=== PATIENT | male | born 1940 | race Caucasian/White ===

== ENCOUNTER 2016-10-20 20:24 | Inpatient (IN) | payer MEDICARE, OTHER ==
[~2016-10-20] VITALS: Ht 170.2 cm; Wt 85.4 kg
[2016-10-20 20:33] VITALS: BP 147/75
[2016-10-20 21:03] VITALS: BP 148/75
[2016-10-20] MEDS ORDERED: LOSARTIN PO (21:18)
[2016-10-20 21:32] LABS: BASO % 0.3 % (0.0-1.0); EOS # 0.1 10*3/uL (0.0-0.4); EOS % 2.9 % (1.0-4.0); HEMATOCRIT 25.1 % (42.0-52.0); HEMOGLOBIN 8.7 g/dl (14.0-18.0); LYMPH # 0.9 10*3/uL (1.3-4.4); LYMPH % 23.4 % (27.0-41.0); MEAN CELL VOLUME 103.7 fl (80.0-94.0); MEAN CORPUSCULAR HGB CONC 34.7 g/dl (33.0-37.0); MEAN PLATELET VOLUME 10.9 fl (9.6-12.3); MONO # 0.4 10*3/uL (0.1-1.0); MONO % 9.5 % (3.0-9.0); NEUT # 2.4 10*3/uL (2.3-7.9); NEUT % 63.4 % (47.0-73.0); PLATELET COUNT AUTOMATED 60 10*3/uL (130-400); RED BLOOD COUNT 2.42 10*6/uL (4.50-5.90); RED CELL DISTRI WIDTH 13.7 % (0-14.5); WHITE BLOOD COUNT 3.8 10*3/uL (4.8-10.8)
[2016-10-20 21:53] LABS: BUN 12 mg/dl (7-24); CARBON DIOXIDE 27 mmol/L (21-32); CHLORIDE 97 mmol/L (98-107); EST GLOM FILT AFRICAN AMERICAN > 60 ml/min; GLUCOSE 107 mg/dL (65-99); SODIUM 134 mmol/L (136-145)
[2016-10-20 22:04] LABS: TROPONIN I < 0.015 ng/ml (<0.045)
[2016-10-20 22:06] VITALS: BP 152/84
[2016-10-20 23:05] VITALS: BP 148/72
[2016-10-20 23:27] VITALS: BP 120/77
[2016-10-20 23:42] VITALS: BP 159/74
[2016-10-21 04:00] VITALS: BP 154/76
[2016-10-21 04:24] LABS: BASO % 0.3 % (0.0-1.0); EOS % 0.7 % (1.0-4.0); HEMATOCRIT 23.7 % (42.0-52.0); HEMOGLOBIN 8.2 g/dl (14.0-18.0); LYMPH # 0.6 10*3/uL (1.3-4.4); LYMPH % 20.7 % (27.0-41.0); MEAN CELL VOLUME 103.5 fl (80.0-94.0); MEAN CORPUSCULAR HGB 35.8 pg (27.0-31.0); MEAN CORPUSCULAR HGB CONC 34.6 g/dl (33.0-37.0); MEAN PLATELET VOLUME 11.3 fl (9.6-12.3); MONO # 0.2 10*3/uL (0.1-1.0); MONO % 6.9 % (3.0-9.0); NEUT # 2.2 10*3/uL (2.3-7.9); NEUT % 71.1 % (47.0-73.0); PLATELET COUNT AUTOMATED 53 10*3/uL (130-400); RED BLOOD COUNT 2.29 10*6/uL (4.50-5.90); RED CELL DISTRI WIDTH 13.5 % (0-14.5); WHITE BLOOD COUNT 3.1 10*3/uL (4.8-10.8)
[2016-10-21 04:37] LABS: INTERNATIONAL NORM RATIO 1.4 (2.0-3.5); PROTHROMBIN TIME 15.4 SECONDS (9.0-12.4)
[2016-10-21 04:42] LABS: ALBUMIN 2.4 gm/dl (3.1-4.5); BILIRUBIN, TOTAL 2.9 mg/dl (0.2-1.0); BUN 11 mg/dl (7-24); CARBON DIOXIDE 26 mmol/L (21-32); CHLORIDE 99 mmol/L (98-107); CHOLESTEROL 106 mg/dL (<200); EST GLOM FILT AFRICAN AMERICAN > 60 ml/min; GLUCOSE 117 mg/dL (65-99); MAGNESIUM 1.3 mg/dL (1.5-2.1); SGOT/AST 76 IU/L (3-35); SGPT/ALT 32 U/L (12-78); SODIUM 135 mmol/L (136-145); TOTAL PROTEIN 5.7 gm/dL (6.4-8.2); TRIGLYCERIDES 82 mg/dl (<150); VLDL CHOLESTEROL 16 mg/dL (6-40)
[2016-10-21 04:43] LABS: ALKALINE PHOSPHATASE 147 U/L (45-117); HDL CHOLESTEROL 36 mg/dl (40-60); LDL CHOLESTEROL 54 mg/dL (9-159)
[2016-10-21 04:48] LABS: FREE T4 1.22 ng/dl (0.76-1.46)
[2016-10-21 04:49] LABS: HEMOGLOBIN A1c 4.7 % (4.8-5.6)
[2016-10-21 08:00] VITALS: BP 148/72
[2016-10-21 08:30] LABS: FOLIC ACID 5.93 ng/mL (>5.38)
[2016-10-21 12:00] VITALS: BP 152/54
[2016-10-21 16:00] VITALS: BP 152/54
[2016-10-21] MEDS ORDERED: LOSARTAN POTASS1 TA5 PO (18:25)
[2016-10-21 20:00] VITALS: BP 147/63
[2016-10-22] VITALS: BP 123/53
[2016-10-22 07:17] LABS: BASO % 0.6 % (0.0-1.0); EOS # 0.1 10*3/uL (0.0-0.4); EOS % 4.2 % (1.0-4.0); HEMATOCRIT 23.2 % (42.0-52.0); HEMOGLOBIN 7.9 g/dl (14.0-18.0); LYMPH # 1.2 10*3/uL (1.3-4.4); MEAN CELL VOLUME 103.1 fl (80.0-94.0); MEAN CORPUSCULAR HGB 35.1 pg (27.0-31.0); MEAN CORPUSCULAR HGB CONC 34.1 g/dl (33.0-37.0); MEAN PLATELET VOLUME 11.7 fl (9.6-12.3); MONO # 0.3 10*3/uL (0.1-1.0); NEUT # 1.6 10*3/uL (2.3-7.9); NEUT % 48.9 % (47.0-73.0); PLATELET COUNT AUTOMATED 57 10*3/uL (130-400); RED BLOOD COUNT 2.25 10*6/uL (4.50-5.90); RED CELL DISTRI WIDTH 13.9 % (0-14.5); WHITE BLOOD COUNT 3.4 10*3/uL (4.8-10.8)
[2016-10-22 07:47] LABS: BUN 11 mg/dl (7-24); CARBON DIOXIDE 28 mmol/L (21-32); CHLORIDE 101 mmol/L (98-107); EST GLOM FILT AFRICAN AMERICAN > 60 ml/min; GLUCOSE 95 mg/dL (65-99); MAGNESIUM 1.3 mg/dL (1.5-2.1); POTASSIUM 3.8 mmol/L (3.5-5.1); SODIUM 135 mmol/L (136-145)
[2016-10-22 07:59] VITALS: BP 137/65
[2016-10-22 12:00] VITALS: BP 126/68
== END 2016-10-22 13:11 | disposition home or self-care (01) | DRG 640 ==
LOC: ED 20:24 → 4E 22:45 → EDHOLD 22:45 → 4E 23:00
PROVIDERS: Emergency Medicine Emergency Medical Services; Internal Medicine; Internal Medicine Hospice and Palliative Medicine
DX: E86.0 Dehydration (principal); E43 Unspecified severe protein-calorie malnutrition; D61.818 Other pancytopenia; D64.9 Anemia, unspecified; E87.1 Hypo-osmolality and hyponatremia; D72.810 Lymphocytopenia; R73.9 Hyperglycemia, unspecified; I10 Essential (primary) hypertension; E83.42 Hypomagnesemia; E78.5 Hyperlipidemia, unspecified; N40.0 Benign prostatic hyperplasia without lower urinary tract symptoms; Z85.118 Personal history of other malignant neoplasm of bronchus and lung; Z90.49 Acquired absence of other specified parts of digestive tract; Z82.49 Family history of ischemic heart disease and other diseases of the circulatory system; Z87.891 Personal history of nicotine dependence; Z68.28 Body mass index [BMI] 28.0-28.9, adult

== ENCOUNTER 2018-01-01 06:11 | Inpatient (IN) | payer MEDICARE, OTHER ==
[~2018-01-01] VITALS: Ht 170.2 cm; Wt 91.9 kg
--- NOTE | ~2018-01-01 | PR ---
[place], [place] PROGRESS NOTE NAME: RIYA SORIA UNIT #: [id number] ROOM: 524 DOCTOR: SUE HESS,SITA BIRTHDATE: [birth year] DOS: 01/12/2018 This is an attestation to the progress note date of service 01/12/2018. I have seen the patient and examined and agreed with the assessment and plan of the resident and made the necessary changes. Cherise Rogers MD CM:PNTRANS [id number] SITA ROGERS MD 03/02/18 1030 interface
--- NOTE | ~2018-01-01 | PR ---
[place], [place] PROGRESS NOTE NAME: RIYA SORIA UNIT #: [id number] ROOM: 524 DOCTOR: MARLENE PINK MDLISA BIRTHDATE: [birth year] DOS: 01/07/2018 SUBJECTIVE: The patient has been noted comfortable, resting and sitting on the chair. Eating his breakfast. Denies symptoms of chest pain or hemoptysis. Denies symptoms of nausea or vomiting. Denies symptoms of acute shortness of breath. The patient remains afebrile. Denies symptoms of nausea, vomiting, diarrhea, abdominal pain, hematemesis, or melena. He was still noted some tachycardia intermittently. Remaining review of systems, limited were noted negative. OBJECTIVE: VITAL SIGNS: Normal temperature, respiratory rate 22, heart rate 116, blood pressure 114/90. Pulse oxygen saturation on room air is 93%, saturation recorded at rest. HEENT: Head was atraumatic. Eyes nonicterus. NECK: Supple. CARDIOVASCULAR: S1, S2 audible. LUNGS: Noted without any wheezing or crackles at the present time. ABDOMEN: Soft, nontender. EXTREMITIES: Without any acute edema. MUSCULOSKELETAL: No deformities. SKIN: Visible skin lesions or rashes. CENTRAL NERVOUS SYSTEM: Generalized weakness. No focal deficit. LABORATORY DATA: Essentially noted positive on the BAL and bronchial washing, which was done on 01/05/2018. IMPRESSION: The patient with cavitary nodule noted several ____ and solid nodule, at this time, etiology is unclear, may be related to atypical tuberculosis. Usually atypical tuberculosis is seen with current radiologic presentation. The HIV testing was also done, which is noted nonreactive. The fungal antibody was pending. The TB Gold test was also sent on with pending results. The reference lab has been contacted. The results might be available tomorrow. In the meantime, the patient was placed in negative pressure isolation. Continue in the meantime with other therapy, plan of management as in progress. Usual care. The patient might need to be transferred to [facility] for further medical management. He has been known very well by the physicians over there. The patient has not been seen in this hospital previously. Medical records have been requested for Dr. Gomez' office, his top taper machine/oncologist, which still remains pending and not available as yet, which has been ordered for the last 5 days. [place], [place] PROGRESS NOTE NAME: RIYA SORIA UNIT #: [id number] ROOM: 524 DOCTOR: LISA RIVERA MD BIRTHDATE: [birth year] LISA ROSARIO MD CM:TAE [phone] LISA PINK MD 01/08/18 0157 interface
--- NOTE | ~2018-01-01 | PR ---
[place], [place] PROGRESS NOTE [id number] UNIT #: [id number] ROOM: 524 DOCTOR: LISA RIVERA MD BIRTHDATE: [birth year] DOS: 01/03/2018 SUBJECTIVE: The patient was seen and examined on 01/03/2018. He has not been noted any ongoing acute new respiratory complaints. Denies dizziness, headache, diplopia, syncopal episode. Denies any symptoms of nausea, vomiting, diarrhea, abdominal pain, hematemesis, melena, or hematochezia. The patient denies any symptoms of abdominal pain at this time. Remaining systems were reviewed, they were noted all negative. OBJECTIVE: VITAL SIGNS: For the patient, which have been recorded showed normal temperature, respiration 16, heart rate 99, blood pressure 120/70. Pulse oxygen saturation is 96% saturation on 2 liters nasal cannula. HEENT: Examination shows head was atraumatic. Eyes: No icterus. NECK: Supple. CARDIOVASCULAR: S1, S2 is audible. LUNGS: The patient was noted without any wheezing or crackles at this time. Breaths are noted mildly diminished bilaterally. ABDOMEN: Soft, nontender. Bowel sounds present. EXTREMITIES: Without any acute edema. MUSCULOSKELETAL: Noted some loss of muscle mass. There were no deformities. CENTRAL NERVOUS SYSTEM: Cranial nerves 2-12 intact. No focal deficit. LABORATORY DATA: CBC today, WBC count 2.8, hemoglobin 7.5, 22.5, platelet count of 41,000. CMP on 01/03/2018 was noted BUN 33, creatinine 2.26. Glucose 103. Potassium was 3.4. Total protein 5.3, albumin 2.3. Blood culture showed no bacterial growth. The ESR was noted as well, which was normal. CRP minimally elevated at 0.42. IMPRESSION: 1. Bilateral pulmonary nodule, which has been noted. The patient with the cavitation suggestive of possibility of chronic infection to be considered versus metastatic malignancy for primary lung cancer with multiple pulmonary nodules, vasculitis and other less likely to be a typical Mycobacterium tuberculosis; however, atypical mycobacterial infection cannot be excluded. 2. Labs described to me by the patient's spouse and the family members. The patient has been treated by Dr. Singh, [facility] with Aranesp shot for the symptomatic anemia. With the current pancytopenia noted on the today's lab was suggestive of possibility of myelodysplastic syndrome would be very likely. That does increase the risk of getting any resistant infection and pulmonary infection including fungal infections. 3. History of recurrent falls, multifactorial noted with some pain problem rather than the back. Other factors. However, any [employer] pathology to be excluded, probably with MRI. The patient has been noted acute injury at this time with resolving, but the kidney function not noted well enough to have the MRI done with contrast at this time. In the meantime, continue current plan of management. The patient was started on negative pressure isolation, which has been discontinued that is not needed. The patient was suggested fibrobronchoscopy that was planned to be done on Friday morning for assessment [place], [place] PROGRESS NOTE NAME: IRYA SORIA UNIT #: [id number] ROOM: 524 DOCTOR: LISA RIVERA MD BIRTHDATE: [birth year] of the infection and other reasons. In the meantime, continuation of the other supportive therapy, plan of management obtain hematology consultation at the present time and also try to get the medical record of the patient, Dr. Singh from [place], [place]. The patient further assessment of hematologic problems. The patient has been known with history of lung cancer in the left side. The patient underwent lobectomy 21 years ago or so as the patient surgery was done in [facility] as well, has not been known with any further malignant issues as per family members. 4. Physical appearance of protein-calorie malnutrition as well. The risk and benefits of bronchoscopy were discussed with the patient and the family members in detail. The past family and social history reviewed again and was not unchanged unless it was dated in today's history of present illness. The assessment and management has been discussed in detail for the patient with Dr. James Alonso as well. LISA ROSARIO MD CM:PNTRANS [id number] LISA PINK MD 01/03/18 3211 interface
--- NOTE | ~2018-01-01 | PR ---
[place], [place] PROGRESS NOTE NAME: RIYA SORIA UNIT #: [id number] ROOM: 524 DOCTOR: MARLENE PINK MD,LISA BIRTHDATE: [birth year] DOS: 01/04/2018 PULMONARY PROGRESS NOTE SUBJECTIVE: The patient noted comfortable at this time, resting in the bed, without any pain. Denies any symptoms of chest pain. Cough has been noted mild without any sputum expectoration. OBJECTIVE: VITAL SIGNS: Normal temperature, respiratory rate 20, heart rate 82, blood pressure 130/76. Pulse ox saturation on 2 liters nasal cannula 97% saturation. HEENT: Examination shows head was atraumatic. Eyes nonicterus. NECK: Supple. CARDIOVASCULAR: S1, S2 audible. LUNGS: Egzr-at-bjyrtfni decreased breath sounds bilaterally. There were no crackles or wheezing today. ABDOMEN: Soft, nontender. EXTREMITIES: Without acute edema. LABORATORY DATA: CBC today: WBC count 2.9, hemoglobin 7.4, hematocrit 22.1, platelet count 39,000. BMP: BUN 27, creatinine 1.90. IMPRESSION: The patient had been currently noted with: 1. Pancytopenia. 2. Bilateral pulmonary nodules, cavitary nodule noted in the lungs. Various differential has been considered. PLAN OF MANAGEMENT: No changes in the plan of management. Bronchoscopy is planned to be done tomorrow morning. Hematology consultation was ordered. Bronchial washing and BAL specimen will be obtained, ____ biopsy will be done. The patient has been noted with thrombocytopenia as well. All other supportive therapy, plan of management, care plan. LISA ROSARIO MD CM:PNTRANS [phone] LISA PINK MD 01/04/18 1544 interface
--- NOTE | ~2018-01-01 | PR ---
[place], [place] PROGRESS NOTE NAME: RIYA SORIA UNIT #: [id number] ROOM: 524 DOCTOR: COLTEN YOUNGER MD BIRTHDATE: [birth year] DOS: 01/05/2018 SUBJECTIVE: The patient is stable. PHYSICAL EXAMINATION: GENERAL: A pleasant gentleman, in no apparent distress. VITAL SIGNS: Stable and afebrile. HEENT: Normocephalic, atraumatic NECK AND THYROID: Supple. No JVD, thyromegaly, or lymphadenopathy. HEART: Normal S1, S2. Regular rate and rhythm. LUNGS: Clear to auscultation and percussion. ABDOMEN: Soft. Nontender, nondistended. Bowel sounds present. EXTREMITIES: Normal ROM. No clubbing. No edema. LABORATORY DATA: White count of 3.1, hemoglobin 7.5, hematocrit 22.3, MCV 111.5, platelet count 39,000. ASSESSMENT: 1. 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 2. Liver cirrhosis. 3. Bilateral pulmonary nodule. PLAN: We will wait for the path reports to come back. The patient has no bleeding or bruising at this time. If the counts drop, then further intervention. His hemoglobin is 7.5. If it drops further, may need transfusion, discussed. COLTEN YOUNGER MD CM:PNTRANS 1345 1 COLTEN YOUNGER MD 01/06/18210 interface
--- NOTE | ~2018-01-01 | PR ---
[place], [place] PROGRESS NOTE NAME: RIYA SORIA UNIT #: [id number] ROOM: 524 DOCTOR: COLTEN YOUNGER MD BIRTHDATE: [birth year] DOS: 01/07/2018 SUBJECTIVE: The patient is resting comfortable, sitting in the chair. PHYSICAL EXAMINATION: GENERAL: A pleasant gentleman, in no apparent distress. VITAL SIGNS: Blood pressure 140/90, heart rate 116, respiration 22. HEENT: Normocephalic, atraumatic. NECK AND THYROID: Supple. No JVD, thyromegaly, or lymphadenopathy. HEART: Normal S1, S2. Regular rate and rhythm. LUNGS: Clear to auscultation and percussion. ABDOMEN: Soft. Nontender, nondistended. Bowel sounds present. EXTREMITIES: Normal ROM. No clubbing. No edema. LABORATORY DATA: White count of 5.7, hemoglobin 9.8, hematocrit 28.9, MCV 102.5, platelet count of 35. ASSESSMENT: 1. Thrombocytopenia and anemia, probably secondary to liver and spleen etiology. 2. Macrocytosis. 2. Possibility of tuberculosis. PLAN: Counts are stable. The patient not bleeding or bruising at this time. If the platelets drop further, then intervention. In the meantime, we will keep a close watch discussed. COLTEN YOUNGER MD CM:PNTRANS [id number] COLTEN YOUNGER MD 01/09/18 0023 interface
--- NOTE | ~2018-01-01 | PR ---
[place], [place] PROGRESS NOTE NAME: RIYA SORIA UNIT #: [id number] ROOM: 524 DOCTOR: NORIS PINK MD BIRTHDATE: [birth year] DOS: 01/06/2018 CARDIOLOGY PROGRESS NOTE SUBJECTIVE: The patient was seen today 01/06/2018 at his bedside with his in attendance. He denies any problems with the WEN that he had yesterday. He did have a fever overnight, but denies any trouble swallowing or chest discomfort. He does not have a cough. He also is being seen by Infectious Diseases PHYSICAL EXAMINATION: VITAL SIGNS: Today, his pulse is 80 and regular, blood pressure is 118/68. He is afebrile, but his temperature overnight was up to 102.0. HEENT: Normocephalic and atraumatic. Extraocular muscles are intact. NECK: Supple. He has no jugular distention. Carotids are full. LUNGS: Respirations are unlabored. Chest has decreased breath sounds at the bases, but no wheezes or rales. HEART: Has a regular rhythm with an S4 gallop. I did not hear any murmurs. ABDOMEN: Soft. EXTREMITIES: Showed 1+ edema bilaterally. His transesophageal echocardiogram yesterday showed normal left ventricular systolic function with no evidence for endocarditis. At this point, he does not appear to have a cardiac cause for his symptoms. We will sign off but we will remain available to see him should his status change. I thank the hospitalist physicians for asking our advice regarding his care. NORIS PINK MD CM:PNTRANS [id number] NORIS PINK MD 01/07/18 1904 interface
--- NOTE | ~2018-01-01 | PR ---
[place], [place] PROGRESS NOTE NAME: RIYA SORIA UNIT #: [id number] ROOM: 524 DOCTOR: LISA RIVERA MD BIRTHDATE: [birth year] DOS: 01/08/2018 SUBJECTIVE: The patient was seen and examined on 01/08/2018, remains in negative pressure isolation yesterday. The TB Gold test for patient still remains pending. The patient has not been noted any fever or chills. He does not have symptoms of coughing or chest pain. Appetite was noted fair. OBJECTIVE: VITAL SIGNS: Normal temperature, respiratory rate 20, heart rate of 109, blood pressure 123/60. The pulse oxygen saturation on room air was 96% saturation. HEENT: Head was atraumatic. Eyes nonicterus. NECK: Supple. CARDIOVASCULAR: S1, S2 is audible. LUNGS: The patient noted without any wheezing or crackles. ABDOMEN: Soft, nontender. EXTREMITIES: No acute edema. LABORATORY DATA: CBC, WBC count 4.3, hemoglobin 9.2, platelet count 34,000. The BMP is BUN 30, creatinine 1.42. IMPRESSION: 1. The patient with cavitary, noncavitary nodule noted in the lungs. The patient with positive acid fast bacillus on the bronchial washing smear outpatient with pending further results. 2. Pending acid fast bacillus DNA. 3. The patient with pancytopenia with history of liver cirrhosis as well, rule out myelodysplastic syndrome. PLAN OF MANAGEMENT: No changes in the plan of care for patient at this time. Keep the patient negative pressure isolation for the TB precautions. Monitor results of the TB Gold to determine what kind of treatment would be needed for this patient, rather the patient has a typical mycobacterium infection or atypical mycobacterial infection, the patient has a nontuberculous bacterial infection. [place], [place] PROGRESS NOTE NAME: RIYA SORIA UNIT #: [id number] ROOM: 524 DOCTOR: LISA RIVERA MD BIRTHDATE: [birth year] LISA ROSARIO MD CM:PNTRANS [id number] LISA PINK MD 01/08/18 1537 interface
--- NOTE | ~2018-01-01 | PR ---
[place], [place] PROGRESS NOTE NAME: RIYA SORIA UNIT #: [id number] ROOM: 524 DOCTOR: LISA RIVERA MD BIRTHDATE: [birth year] DOS: 01/13/2018 PULMONARY PROGRESS NOTE SUBJECTIVE: The patient is noted comfortable at this time without any acute distress, resting without any coughing, sputum expectoration or any chest pain. OBJECTIVE: VITAL SIGNS: Normal temperature, respiratory rate 20, heart rate 68, blood pressure 134/65. The pulse ox saturation noted on room air as 95% saturation. HEENT: Shows head was atraumatic, eyes nonicterus. NECK: Supple. CARDIOVASCULAR: S1, S2 audible. LUNGS: The patient was noted without any wheezing or crackles. ABDOMEN: Soft, nontender. Bowel sounds present. EXTREMITIES: Noted without any acute edema. IMPRESSION: 1. The patient with cavitary and non-cavitary nodules with positive acid fast bacillus with pending identification and sensitivity. TB QuantiFERON test was noted negative. 2. Overall debility still remains persistent. 3. History of lung cancer, previously with right upper lobectomy and pulmonary nodule noted in 2017 as well. 4. Prostate cancer, only treated with Lupron. PLAN OF MANAGEMENT: No change in plan of management. Discharge planning is not in progress. The culture results for the patient and the PCR of the current acid fast remains pending. Possibility of malignancy with current pulmonary nodule still should be considered and exclude the patient appropriately with outpatient assessment upon stability of the patient. Medication for the acid fast bacillus management at this time remains pending because of the lack of the final identification results. [place], [place] PROGRESS NOTE NAME: RIYA SORIA UNIT #: [id number] ROOM: 524 DOCTOR: LISA RIVERA MD BIRTHDATE: [birth year] LISA ROSARIO MD CM:PNTRANS [id number] LISA PINK MD 01/13/18 1029 interface
--- NOTE | ~2018-01-01 | PR ---
[place], [place] PROGRESS NOTE NAME: RIYA SORIA UNIT #: [id number] ROOM: 524 DOCTOR: COLTEN YOUNGER MD BIRTHDATE: [birth year] DOS: 01/06/2018 SUBJECTIVE: The patient is doing better; though, he is getting worsening back pain. PHYSICAL EXAMINATION: GENERAL: A pleasant gentleman in no apparent distress. VITAL SIGNS: Blood pressure is 118/60, respirations 18, pulse is 80, temperature is 97.8. HEENT: Normocephalic, atraumatic. NECK AND THYROID: Supple. No JVD, thyromegaly, or lymphadenopathy. HEART: Normal S1, S2. Regular rate and rhythm. LUNGS: Clear to auscultation and percussion. ABDOMEN: Soft. Nontender and nondistended. Bowel sounds present. EXTREMITIES: Normal ROM. No clubbing. No edema. LABORATORY DATA: White count of 4.1, hemoglobin is 6.6, hematocrit is 20.1, platelet count is 28, and MCV 111.0. ASSESSMENT: 1. Pancytopenia. 2. Progressive anemia. 3. Back pain. 4. Cirrhosis of liver. PLAN: The patient will be getting a couple units of packed RBC, other counts are stable otherwise. If any change, then further intervention. COLTEN YOUNGER MD CM:PNTRANS 1404 0055 COLTEN YOUNGER MD 01/07/18 0053 interface
--- NOTE | ~2018-01-01 | PR ---
[place], [place] PROGRESS NOTE NAME: RIYA SORIA UNIT #: [id number] ROOM: 524 DOCTOR: MARLENE PINK MD,LISA BIRTHDATE: [birth year] DOS: 01/11/2018 PULMONARY PROGRESS NOTE SUBJECTIVE: The patient noted comfortable at this time, sitting on the chair this morning in his room. He has not been noted with symptoms of coughing, chest pain, sputum expectoration, abdominal pain or hemoptysis. OBJECTIVE: VITAL SIGNS: For the patient which has been recorded showed normal temperature, respiratory rate 16, heart rate 73, blood pressure 134/53, pulse ox saturation on room air 97% saturation. HEENT: Shows head was atraumatic. Eyes nonicterus. NECK: Supple. CARDIOVASCULAR: S1, S2 audible. LUNGS: The patient was noted without any wheeze or crackles. ABDOMEN: Soft, nontender, bowel sounds present. EXTREMITIES: Without any acute edema. IMPRESSION: The patient who had been noted comfortable at this time without any acute illness is currently being assessed for the cavitary and non-cavitary nodule for possibility of atypical Mycobacterium tuberculosis infection. The patient with pending further DNA probe, PCR and cultures. The patient has been noted with minimal symptoms at this time. He was still noted with pancytopenia. PLAN OF THERAPY: No changes in the plan of care at this time. Await for the further results of the current positive smear acid fast on the bronchial washing and bronchoalveolar lavage prior to making decision for the patient's management. The patient has been also followed up by the Infectious disease specialist. LISA ROSARIO MD CM:PNTRANS [id number] LISA PINK MD 01/11/18 2334 interface
--- NOTE | ~2018-01-01 | CON ---
[place], [place] REPORT OF CONSULTATION NAME: RIYA SORIA UNIT #: [id number] ROOM: 524 DOCTOR: LISA RIVERA MD BIRTHDATE: [birth year] DOS: 01/02/2018 PULMONARY CONSULTATION, EVALUATION AND MANAGEMENT CONSULTATION REQUESTED BY: Hospitalist service. REASON FOR CONSULTATION: Pulmonary nodule cavitation and other pulmonary abnormalities. HISTORY OF PRESENT ILLNESS: A 77-year-old white male who has been admitted under the hospitalist service on 01/01/2018. The patient came into the hospital. The patient noted with symptoms of shortness of breath ongoing for the past couple of days. He has fallen at home several times meanwhile with a decreased difficulty of ambulation. The patient does have a cough, which occurred sometime at night without any sputum expectoration. The patient denies symptoms of chest pain or hemoptysis. The patient denies symptoms of chest trauma. REVIEW OF SYSTEMS: CONSTITUTIONAL: Noted somewhat a poor historian, however, the patient denies symptoms of fever or chills. EYES: Denies any burning, redness, or tenderness. EARS, NOSE, THROAT SYMPTOMS: Denies sore throat, hoarseness, otalgia, postnasal drainage or epistaxis. CARDIOVASCULAR: Denies angina pain, edema, or pain in lower extremity. GASTROINTESTINAL: No dysphagia, nausea, vomiting, diarrhea, abdominal pain, hematemesis, melena, not sure if the patient has any weight loss. There were no symptoms of dysphagia reported. GENITOURINARY: No dysuria, suprapubic pain or hematuria. MUSCULOSKELETAL: The patient does not report any symptoms of joint pain, redness, or tenderness. CENTRAL NERVOUS SYSTEM: Denies dizziness, headache, or diplopia. Noted history of recurrent fall and also possibility of Alzheimer's dementia. Remaining systems were reviewed, they were noted all negative. PAST MEDICAL HISTORY: Has been reported for this patient documented by the other physician note: 1. The patient has BPH. 2. COPD. 3. Liver cirrhosis. 4. Compression fracture at T12 and L2. 5. Degenerative disk disease. 6. Dementia. 7. Depression. 8. Alzheimer's dementia. 9. ____. 10. Diverticulosis. 11. General anxiety disorder. 12. Essential hypertension. [place], [place] REPORT OF CONSULTATION NAME: RIYA SORIA UNIT #: [id number] ROOM: 524 DOCTOR: LISA RIVERA MD BIRTHDATE: [birth year] 13. Past history of lung cancer with lobectomy at 20 years old reported. Further details were unknown. PAST SURGICAL HISTORY: 1. Cholecystectomy. 2. Lobectomy of the lung, again details are unknown of the site of the lobectomy of the patient and other details about that. 3. Appendectomy. SOCIAL HISTORY: The patient stated he is , has 4 children. Tobacco use for the patient was noted in the past where the patient smoked about a pack of cigarettes per day, discontinued about 21 years ago. Denies any history of asbestos exposure. FAMILY HISTORY: Reported with the father at 42 years old from myocardial infarction. Mother at 92 years old from old age. HOME MEDICATIONS: Noted as use of Xanax, Lexapro, Motrin, Hyzaar, Namenda and Kenalog. DRUG ALLERGIES: NOTED ALLERGY TO THE ANTIHISTAMINES. PHYSICAL EXAMINATION: GENERAL: This is a 77-year-old male patient who has been currently resting comfortably on the bed. Height of 5 feet 7 inches, weight of 202 pounds, BMI 31.7. VITAL SIGNS: The patient showed normal temperature, respiratory rate 16-17, heart rate 189, and blood pressure 134/56 to 104/45. Pulse oxygen saturation on 2 liters of nasal cannula noted 98% on room air, on admission was 82% saturation. HEENT: Examination shows head was atraumatic. Eyes nonicterus. NECK: Supple. CARDIOVASCULAR: S1, S2 audible. LUNGS: The patient noted generally diminished breath sounds in the lungs noted bilaterally. ABDOMEN: Soft, nontender. Bowel sounds present. EXTREMITIES: The patient was noted without any acute edema, clubbing, or cyanosis. CENTRAL NERVOUS SYSTEM: There were no gross focal neurologic deficit, limited examination. LABORATORY DATA: CBC of the patient on 01/01/2018, hemoglobin 9, hematocrit normal, WBC count normal, and platelet count 65,000. PT/INR 1.3, normal PTT. CMP of the patient of 621, BUN 39, creatinine 3.6, and glucose 110. Potassium 2.7. Lactic acid 2.6, on followup 1.8. Arterial blood gas, pH of 7.43, pCO2 of 39, pO2 86 on 2 liters yesterday. CBC this morning, hemoglobin 9.2, platelet count 63,000. CMP of the patient, BUN 35, creatinine 2.60. B12 and folic acid of the patient noted as normal folic acid, B12 was noted mildly elevated. Review of the radiology data, the patient had a CT scan of the chest with the patient's abdomen and pelvis was done. The CT scan chest was in particular [place], [place] REPORT OF CONSULTATION NAME: RIYA SORIA UNIT #: [id number] ROOM: 524 DOCTOR: MARLENE PINK MD,[facility] BIRTHDATE: [birth year] personally reviewed from the PACS image of the patient shows several nodules for the patient of different sizes up to 1 cm for this patient or less, noted with the cavitation solitary nodule, which has been noted bilaterally. Tree-in-bud opacity of the patient was also noted in the left lower lobe as well, possibility of pneumonia. Evidence of centrilobular emphysema, liver cirrhosis of the patient was also noted. The patient was also reported finding of moderate pancreatic atrophy by radiologist report as well. IMPRESSION: 1. The patient who has been currently admitted to the hospital noted with acute hypoxic respiratory failure. Possibility of acute pneumonia. 2. Bilateral multiple cavitary nodule with 1 cm for the patient with thick margins with possible suggestion of cavitary nodules diagnosis considered as a lung malignancy for this patient with metastatic malignancy from any part of the body, infectious etiology for the bacterial infection including gram-positive, gram-negative infection, chronic fungal infection and vasculitis should be considered. 3. Acute kidney injury noted for the patient with relationship with the patient for pulmonary renal syndrome to be defined as well. 4. The patient with a history of dementia. 5. Recurrent fall for the patient, etiology unclear. CT scan of the head for the patient was done, which does not show any gross major abnormality done without contrast on admission. 6. Previous history of nicotine abuse. 7. Past history of cancer of the lung for the patient was also reported lobectomy. Again, details were unknown. PLAN OF MANAGEMENT: Usual workup of infection for the patient with available serology in this hospital was ordered including the initial vasculitis workup. Agree with use of the antibiotic treatment of the pneumonia. Fiberoptic bronchoscopy could be done for further reassessment, also obtain a Cardiology consultation and echocardiogram for this patient to rule out endocarditis with current cavitary nodules assessment. Other additional treatment changes will be made for this patient based on progression of the illness, current findings certainly not suggestive of typical Mycobacterium tuberculosis; however, atypical mycobacterial infection to be considered in the differential diagnosis including Mycobacterium avium intracellular or similar infection such as Mycobacterium kansasii and Mycobacterium abscessus. Closely monitor over the respiratory status of the patient to continue to supplement the oxygen to maintain pulse oxygen saturation 90% or greater. Thanks for allowing me to participate in the care of this patient. [place], [place] REPORT OF CONSULTATION NAME: RIYA SORIA UNIT #: [id number] ROOM: 524 DOCTOR: LISA RIVERA MD BIRTHDATE: [birth year] LISA ROSARIO MD CM:CONSTR:REPORT OF CONSULTATION 1315 01/05/18 0933 interface
--- NOTE | ~2018-01-01 | PR ---
[place], [place] PROGRESS NOTE NAME: RIYA SORIA UNIT #: [id number] ROOM: 524 DOCTOR: MARLENE PINK MD,LISA BIRTHDATE: [birth year] DOS: 01/09/2018 SUBJECTIVE: The patient noted comfortable at this time, resting, free of any coughing, chest pain, shortness of breath or wheezing. Denies symptoms of nausea, vomiting, diarrhea or any abdominal pain. The patient has been noted without any change in mental status, remained negative pressure isolation room. Review of systems could not be performed for the patient at this time. The patient was still noted decreased appetite. OBJECTIVE: VITAL SIGNS: This morning, normal temperature, respiratory rate 20, heart rate of 77, blood pressure 126/61. Pulse ox saturation on 2 liters nasal cannula 98% saturation. HEENT: Examination shows head was atraumatic. Eyes nonicterus. NECK: Supple. CARDIOVASCULAR SYSTEM: S1, S2 is audible. LUNGS: The patient was noted without any wheezing or crackles. ABDOMEN: Soft, nontender, bowel sounds present. EXTREMITIES: Without any acute edema. MUSCULOSKELETAL: No deformity with skin lesions or rashes. CENTRAL NERVOUS SYSTEM: Nonfocal. LABORATORY DATA: The coccidioidomycosis antibody noted negative, histoplasma antibodies were noted negative as well. The cryptococcal antigen in the blood was noted negative. The serum QuantiFERON test noted negative as well. Renal function panel today: BUN 28, creatinine 1.41. Albumin 2.0. CBC: WBC count 3.0, hemoglobin 8.4, hematocrit 24.7, platelet count of 32,000. IMPRESSION: 1. The patient with cavitary and noncavitary lesion. The patient with suspicion of Mycobacterium avium complex infection, atypical mycobacterial infection to be considered, positive smear for the patient, less likely tuberculosis negative TB Gold test. 2. Pancytopenia, which has been noted variable, levels of anemia, leukopenia and thrombocytopenia. 3. History of liver cirrhosis. PLAN OF THERAPY: The patient will be started on the Zithromax ____ daily dose. The rifampin will be placed on hold because of current hematologic abnormalities. Monitoring will be done. Continue to monitor results of the bronchial washing as well. Other supportive therapy, plan of management. Usual care. Negative pressure room could be discontinued. The patient at this time had no requirement for the TB test on the skin with current low suspicion for tuberculosis. However, the cultures will be monitored. [place], [place] PROGRESS NOTE NAME: RIYA SORIA UNIT #: [id number] ROOM: [facility] DOCTOR: LISA RIVERA MD BIRTHDATE: [birth year] LISA ROSARIO MD CM:PNTRANS [id number] LISA PINK MD 01/10/18 0142 interface
--- NOTE | ~2018-01-01 | PR ---
[place], [place] PROGRESS NOTE NAME: RIYA SORIA UNIT #: [id number] ROOM: 524 DOCTOR: MARLENE PINK MD,LISA BIRTHDATE: [birth year] DOS: 01/06/2018 SUBJECTIVE: The patient noted comfortable at this time, resting on the bed, has not been noted any symptoms of chest pain or any abdominal pain. Bronchoscopy completed yesterday successfully without any difficulty. He has been noted with a temperature which has been noted, rectal temperature of 102 degrees Fahrenheit as well. He has not been noted any symptoms of chest pain or any acute hemoptysis. The patient was noted with mild cough without any sputum expectoration and symptoms of nausea, vomiting, diarrhea, abdominal pain, general weakness and fatigue still noted and persisted. REVIEW OF SYSTEMS: Completed, otherwise noted normal. OBJECTIVE: VITAL SIGNS: Temperature 102 degrees Fahrenheit normal temperature noted. The respiratory rate range between 18-115, and blood pressure 154-118/68. The pulse ox saturation on 2 liters nasal cannula 98% saturation. HEENT: Examination shows head was atraumatic. Eyes nonicterus. NECK: Supple. CARDIOVASCULAR: S1, S2 is audible. LUNGS: The patient noted without any wheezing or crackles at this time. Breaths are noted. Clear to auscultation bilaterally. ABDOMEN: Soft, flat, nontender. Bowel sounds present. EXTREMITIES: The patient noted without any acute edema. MUSCULOSKELETAL: No deformities. SKIN: No visible skin lesions or rashes. CENTRAL NERVOUS SYSTEM: Nonfocal. LABORATORY DATA: Gram stain of the bronchial washing for the patient of 01/05/2018, moderate epithelial cells, white blood cells, gram-negative bacilli in the gram-positive cocci in chains and clusters. The Gram stain of the other specimens and BAL of the right upper lobe noted few epithelial cells. No white blood cells and few gram-positive cocci in clusters. Strep pneumo antigen was noted negative in the urine. The CBC this morning, WBC count 4.1, hemoglobin 6.6, hematocrit 20.1, platelet count of 28,000. The CMP patient of 01/06/2018, BUN 26, creatinine 1.69, glucose of 100. Albumin 2.1, total bilirubin 2.7, AST 45, total protein 4.7. GAURAV for this patient noted negative. Aldolase level noted normal. Vasculitis workup was noted negative. The JENNIFER level was noted as significant elevation. The IgE level noted mildly elevated at 218 with normal immunoglobulins level. Culture of the bronchial washing of the patient preliminary for both of the culture noted normal jacquelyn. Final culture results were pending. Blood cultures from the of this month was noted without any bacterial growth. The transesophageal echocardiogram, which was also done yesterday that was completed, reported by the 4 h youth development specialist, Dr. Houser, normal left ventricular size. There was no evidence of vegetation for the patient with thrombus noted. Possibility of intrapulmonary shunting was suspected with bubble study. There was no evidence of endocarditis or any valvular disease. IMPRESSION: 1. The patient has been noted with several nodules, some of them noted ____ [place], [place] PROGRESS NOTE NAME: RIYA SORIA UNIT #: [id number] ROOM: 524 DOCTOR: MARLENE PINK MD,[facility] BIRTHDATE: [birth year] various differentials has been considered including chronic infection, possibility of sarcoidosis ____ infection will be considered because of elevation of the JENNIFER level as well. 2. The patient with severe pancytopenia with progressive anemia. 3. The patient with significant thrombocytopenia as well. 4. Elevation of temperature also noted with the patient's current medical illness. PLAN OF MANAGEMENT: Continue the patient's current medical management of the patient. The workup for the patient was also sent, which is still pending. Plan of management to be continued for the patient. Continue antibiotic, bronchodilator. The medical records have been requested from his Medical Oncology Service, which are still pending. Continuation of the other previous therapy, plan of management at this time. Await the other results for the cultures preliminarily noted normal jacquelyn. No fungal elements seen with BAL for bronchial washing with pending culture results of the fungus. Usual care, the plan of management and therapy. Decision about her blood transfusion needs to be determined by the medical oncologist who was already consulted Dr. Alvarado. Monitor thrombocytopenia and follow his advice for this patient for management of thrombocytopenia as well. Other usual care, plan of therapy and management and plan of care. LISA ROSARIO MD CM:PNTRANS [id number] LISA PINK MD 01/06/18 1612 interface
--- NOTE | ~2018-01-01 | PR ---
[place], [place] PROGRESS NOTE NAME: RIYA SORIA [facility] #: [id number] UNIT #: [id number] ROOM: 524 DOCTOR: MARLENE PINK MDLISA BIRTHDATE: [birth year] DOS: 01/12/2018 PULMONARY PROGRESS NOTE SUBJECTIVE: He has been noted comfortable at this time, sitting on the bed, eating his breakfast. He does not show any signs of acute respiratory distress, coughing or sputum expectoration. Denies symptoms of abdominal pain. Review of system was performed that was noted negative for any symptoms of hemoptysis, nausea, vomiting, diarrhea, hematuria, suprapubic pain, headache, or diplopia. General weakness was noted. Remaining systems were reviewed. They were noted all negative. OBJECTIVE: VITAL SIGNS: For the patient which were recorded showed normal temperature, respiratory rate 20, heart rate 92, blood pressure 147/81. Pulse ox saturation on room air is 90-91% saturation. HEENT: No acute change. NECK: Supple. CARDIOVASCULAR: S1, S2 is audible. LUNGS: The patient was noted without any wheezing or crackles at this time. ABDOMEN: Soft, nontender. Bowel sounds present. EXTREMITIES: Without any acute edema. MUSCULOSKELETAL: Without any acute deformities. SKIN: Visible skin no lesions or rashes. CENTRAL NERVOUS SYSTEM: Nonfocal. LABORATORY DATA: The patient's CBC today, WBC count 2.7, hemoglobin 8.2, hematocrit 24.5, platelet count 32,000. Renal function panel this morning, BUN 28, creatinine 1.37. Glucose of 86. Albumin 2.7. The medical records were reviewed from Dr. Singh's office. The patient was noted with a diagnosis of chronic anemia related to the liver cirrhosis. The patient has been assessed by the Gastroenterology service. The patient's diagnosis of Cirrhosis of the liver was confirmed. The patient was also known with history of cancer of the prostate. The patient elected to be treated only for Lupron shots and refused the radiation therapy. The patient as per Dr. Singh note. The patient was noted with mild leukopenia at this time, but most of his anemia and thrombocytopenia with a platelet count of 65,000 was reported as outpatient in 2017. He has a past history of lung cancer with right upper lobectomy. The patient was noted with a new small nodule 3-4 mm size in the right upper lung with a CT scan of the chest that was done in [facility]. IMPRESSION: 1. The patient was noted with current nodule, which are noted some solid, the other cavitary with positive acid fast with the BAL and bronchial washing. Further identification and sensitivities pending. QuantiFERON test was noted negative. Testing for the coccidioidomycosis and antifungal infection, some of them available and they were noted negative. Other tests results were pending. Patient with current positive smear. The patient's culture has not been reported so far from the bronchial washings. The differentials of these nodules [place], [place] PROGRESS NOTE NAME: RIYA SORIA UNIT #: [id number] ROOM: 524 DOCTOR: MARLENE PINK MD,LISA BIRTHDATE: [birth year] is addition to the current atypical infection. Mycobacterium certainly still would be considered as a malignant process. 2. The patient with history of past lung cancer. The patient treated with the surgery in the right upper lobectomy. 3. History of prostate cancer only treated with Lupron shots. 4. Severe debility. PLAN OF MANAGEMENT: Continue to await for the current pending test results. Maximize the physical therapy, occupation therapy, nutrition support and others. No additional changes in the treatment will be necessary. LISA ROSARIO MD CM:PNTRANS [phone] LISA PINK MD 01/20/18 0837 interface
--- NOTE | ~2018-01-01 | PROC NOTE ---
[place], [place] PROCEDURE NOTE NAME: RIYA SORIA UNIT #: [id number] ROOM: 524 DOCTOR: MARLENE PINK MD,LISA BIRTHDATE: [birth year] DOS: 01/05/2018 PROCEDURE: Bronchoscopy. PREOPERATIVE DIAGNOSES: The patient has bilateral pulmonary nodules noted some cavitation as well. POSTOPERATIVE DIAGNOSES: The patient has bilateral pulmonary nodules noted some cavitation as well. PROCEDURE DESCRIPTION: Informed consent obtained for the patient. The patient brought to the OR and placed in supine position. Conscious sedation administered by Anesthesia Department. After the sedation was given, the vocal cords were seen. The vocal cord moving symmetrical movement noted yellowish in color. Bronchoscope entered vocal cord and tracheal lumen noted small amount of secretions, suctioned at yazan level. The yazan noted sharp. Evidence of left lower lobectomy noted with past history of right lower lobectomy with cancer. The left upper lingular lobe bronchi was noted with mucus impaction, which was cleared out with normal saline wash. Right upper, right middle, right lower lobe opening were noted with small to moderate amount of secretion with some mucus impaction. All secretions suctioned out clear. The right upper lobe bronchial alveolar lavage was also obtained from the subsegments. Procedure well tolerated without any complications. Postoperative finding will be discussed with the patient when the patient recovered the effects of acute sedation of the bronchial washing. The BAL specimen sent for all the appropriate testing including all the cultures, cell count with differential and the cytology. LISA ROSARIO MD CM:PROCNOTE:PROCEDURE NOTE [id number] LISA PINK MD
--- NOTE | ~2018-01-01 | CON ---
[place], [place] REPORT OF CONSULTATION NAME: RIYA SORIA UNIT #: [id number] ROOM: 524 DOCTOR: COLTEN YOUNGER MD BIRTHDATE: [birth year] DOS: 01/03/2018 HISTORY OF PRESENT ILLNESS: A 77-year-old white male who has been admitted and stated that he fell several times in the past few days, has been having trouble ambulating for the past few months, has a history of alcohol abuse, but states he has not been drinking that much lately came to the Emergency Room and was admitted was noted to have pancytopenia and consulted for further evaluation and management. PAST MEDICAL HISTORY: Significant for BPH, centrilobular emphysema, cirrhosis of the liver, compression fracture, DDD, dementia, depression, diverticulosis of the large intestine, dyslipidemia, hypertension, lung cancer, macrocytosis, macrocytic anemia, obesity, osteopenia, severe protein-calorie malnutrition. PAST SURGICAL HISTORY: Cholecystectomy, lobectomy of the lung, appendectomy. SOCIAL HISTORY: Drinks a few shots of vodka per day. Denies any drugs. Former smoker, quit 21 years ago. FAMILY HISTORY: Father at age 42 of heart attack. Mother at 92 of old age. ALLERGIES: ANTIHISTAMINES. MEDICATIONS: Xanax, Celexa, Motrin, Hyzaar, Namenda and Kenalog. REVIEW OF SYSTEMS CONSTITUTIONAL: No chills. No fatigue. No fever. No loss of appetite. No night sweats. No weakness. No weight loss. HEENT: No trouble swallowing. No loss of smell. No loss of hearing. No double vision. No pain. No discharge. ENT AND RESPIRATORY: No wheeze. No sore throat. No change in voice. No hearing loss. No nose bleed. No cough. No trouble breathing through nose. No shortness of breath. No coughing up blood. No epistaxis. CARDIOVASCULAR: No chest pain. No dizziness. No irregular heartbeat. No leg edema. No pain in legs while walking. No palpitations. No shortness of breath. DERMATOLOGIC: No acne. No hives. No laceration. No mole. No rash. ENDOCRINE: No cold intolerance. No diabetes. No fatigue. No hot flashes. No polydipsia. No polyuria. No urinating frequently. No weight loss. HEMATOLOGIC AND LYMPH: No fatigue. No easy bruising. GASTROENTEROLOGIC: No change in bowel habits. No indigestion. No frequent bloating. No vomiting blood. No abdominal cramping. No nausea. No heartburn. No vomiting. No abdominal pain. No dysphagia. No diarrhea. No constipation. No blood in stool. MALE REPRODUCTIVE: No testicular pain. No difficulty with erection. No diminished sexual drive. No penile discharge. MUSCULOSKELETAL: No back pain. No muscle pain or weakness. No neck pain. No tingling/numbness. No swelling/bruising. No osteoporosis treatment. OPTHALMOLOGIC: No double vision. No diminished vision. No loss of vision. [place], [place] REPORT OF CONSULTATION NAME: RIYA SORIA UNIT #: [id number] ROOM: [facility] DOCTOR: COLTEN YOUNGER MD BIRTHDATE: [birth year] UROLOGIC: No dysuria. No frequent nighttime urination. No pain with urination. No difficulty urinating. No blood in urine. No frequent urination. No urinary incontinence. NEUROLOGIC: No loss of sensation in specific body area. No vertigo. No burning pain in feet. No trouble with balance. No trouble with coordination. No loss of consciousness. No loss of feeling/power. No confusion. No headache. No tingling/numbness. PSYCHOLOGIC: No tinnitus. No headaches. No shortness of breath. No weight decrease. No nausea. No vomiting. No abdominal discomfort. No constipation. No diarrhea. No depression. No anxiety. PHYSICAL EXAMINATION: GENERAL: General appearance: Pleasant patient, no apparent distress. VITAL SIGNS: Stable, afebrile. HEENT: Oral mucosa appears intact. The external ears are normal in appearance. Nares are patent without lesions, exudates, erythema, or inflammation. Tongue is symmetrical. Uvula is midline. NECK AND THYROID: Neck supple without palpable masses. Trachea is midline. No thyromegaly. No carotid bruit or JVD. BREASTS: Normal. Nipples unremarkable. No drainage. No lumps felt on either side. HEART: Normal S1, S2, without significant murmur, rub, or gallop. LUNGS: Clear to auscultation and percussion with good air entry bilaterally. The patient is breathing easily without the use of accessory muscles. Diaphragmatic excursions are intact. ABDOMEN: No costovertebral angle tenderness. Soft. No organomegaly or masses. Nontender. No hernias present. Liver and spleen are not palpable. LYMPHATIC: No adenopathy noted in the cervical, supraclavicular, axillary, or inguinal regions. NEUROLGIC: Nonfocal. Oriented to person, place, and time. MENTAL STATUS: Appropriate for mood and affect. PERIPHERAL PULSES: No varicosities. Femoral and pedal pulses are palpable. EXTREMITIES: Without cyanosis, clubbing, or edema. No gross anomalies. LABORATORY DATA: White count of 2.8, hemoglobin of 7.5, hematocrit 22.5, MCV 109.8, platelet count 41,000 with a normal ANC. RADIOLOGY: 1. CT scan of the chest, abdomen and pelvis showed multiple bilateral pulmonary nodules ranging in size from a few millimeters up to 1 cm in diameter with a large lesion in the right upper lobe with cavitation. 2. Cirrhotic morphology of the liver. 3. Ibqe-os-dmpsekii pancreatic and adrenal atrophy. A CT scan of the cervical spine showed no acute intracranial pathology. CT of the head showed no acute intracranial pathology. ASSESSMENT: 1. Pancytopenia, probably secondary to cirrhosis of the liver. 2. Leukocytosis, macrocytosis secondary to above. 3. Multiple bilateral pulmonary nodules ranging from a few millimeters up to 1 [place], [place] REPORT OF CONSULTATION NAME: RIYA SORIA UNIT #: [id number] ROOM: 524 DOCTOR: COLTEN YOUNGER MD BIRTHDATE: [birth year] cm. 4. Pneumonia. PLAN: We will get a workup for pancytopenia. I think pancytopenia secondary source is pulmonary nodules at this time. Once the workup comes back, further intervention. In the meantime, we will review peripheral smears, etc. The patient to continue broad spectrum antibiotics. He had bilateral peripheral lung nodules and possibly chronic fungal infection. I had a detailed discussion with the patient about it, seemed to understand. Ample time was given to the patient to ask me questions. We will follow. Thanks for consulting and letting me participate in the care of this interesting patient. COLTEN YOUNGER MD CM:CONSTR:REPORT OF CONSULTATION 1945 02/11/18 0722 interface
--- NOTE | ~2018-01-01 | PR ---
[place], [place] PROGRESS NOTE NAME: [id number] UNIT #: [id number] ROOM: 524 DOCTOR: COLTEN YOUNGER MD BIRTHDATE: [birth year] DOS: 01/08/2018 SUBJECTIVE: The patient was recently diagnosed, bronch cultures came as 3+ AFB positive, currently in airborne isolation. REVIEW OF SYSTEMS: HEENT: No trouble swallowing. No double vision. No loss of vision. No pain. ENT AND RESPIRATORY: No wheeze. No change in voice. No cough. No shortness of breath. No coughing up blood. No epistaxis. CARDIOLOGIC: No chest pain. No dizziness. No irregular heartbeat. No leg edema. No palpitations. No shortness of breath. HEMATOLOGIC AND LYMPH: No past transfusion. No fatigue. No loss of appetite. No easy bruising. GASTROENEROLOGIC: No change in bowel habits. No vomiting blood. No abdominal cramping. No nausea. No vomiting. No diarrhea. No constipation. No blood in stool. MALE REPRODUCTIVE: No testicular pain. No penile discharge. MUSCULOSKELETAL: No back pain. No muscle pain or weakness. No tingling/numbness. UROLOGIC: No pain with urination. No difficulty urinating. No frequent urination. NEUROLOGIC: No burning pain in feet. No trouble with coordination. No loss of consciousness. No headache. No tingling/numbness. No memory loss. PHYSICAL EXAMINATION: VITAL SIGNS: Stable. HEENT: Normocephalic, atraumatic NECK AND THYROID: Supple. No JVD, thyromegaly, or lymphadenopathy. HEART: Normal S1, S2. Regular rate and rhythm. LUNGS: Clear to auscultation and percussion. ABDOMEN: Soft. Nontender, nondistended. Bowel sounds present. EXTREMITIES: Normal ROM. No clubbing. No edema. LABORATORY DATA: White count of 4.2, hemoglobin of 9.2, hematocrit 27.6, MCV 102.6, platelet count of 34,000. ASSESSMENT: 1. Recently found tuberculosis. 2. 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 3. Splenomegaly. PLAN: Counts are Stable. The patient is being treated for active TB. We will keep a close watch if the hemoglobin and hematocrit drops or the platelets drop, then further intervention. [place], [place] PROGRESS NOTE NAME: RIYA SORIA UNIT #: [id number] ROOM: 524 DOCTOR: COLTEN YOUNGER MD BIRTHDATE: [birth year] COLTEN YOUNGER MD CM:PNJEANCARLOS [id number] COLTEN YOUNGER MD 01/09/18 0058 interface
--- NOTE | ~2018-01-01 | EKG ---
[place], [place] ELECTROCARDIOGRAM REPORT NAME: RIYA SORIA UNIT #: [id number] ROOM: 524 DOCTOR: MARLENE PINK MD,LISA BIRTHDATE: [birth year] DOS: 01/03/2018 ELECTROCARDIOGRAM DATE AND TIME OF PROCEDURE: 01/03/2018 at 1:22 p.m. FINDINGS: The electrocardiogram for the patient shows evidence of atrial fibrillation with a controlled range. Possibility of old inferior myocardial infarction, poor R-wave progression was also noted, rule out acute ischemia. LISA ROASRIO MD CM:EKGRPT:ELECTROCARDIOGRAM REPORT 0959 LISA PINK MD
--- NOTE | ~2018-01-01 | PR ---
[place], [place] PROGRESS NOTE NAME: RIYA SORIA UNIT #: [id number] ROOM: 524 DOCTOR: MARLENE PINK MD,LISA BIRTHDATE: [birth year] DOS: 01/10/2018 SUBJECTIVE: The patient noted comfortable at this time without acute distress, coughing, sputum expectoration, or chest pain. He has been currently noted comfortably sitting on the chair. The negative pressure isolation discontinued yesterday. OBJECTIVE: VITAL SIGNS: Normal temperature, respiratory rate 20, heart rate 74, blood pressure is 125/50. Pulse ox saturation on 3 liters nasal cannula 97% saturation. HEENT: Head was atraumatic. Eyes nonicterus. NECK: Supple. CARDIOVASCULAR: S1, S2 audible. LUNGS: Without any wheezing or crackles. ABDOMEN: Soft, nontender. EXTREMITIES: Without acute edema. IMPRESSION: 1. The patient with a cavitary and noncavitary nodules in the lung with an elevated JENNIFER level. ____ noted positive bronchial wash. The patient pending further identification, sensitivities and culture results. 2. Pancytopenia, which remains persistent. PLAN OF MANAGEMENT: The case was discussed with Infectious Disease Specialist yesterday. Agree to hold off any mycobacterial treatment at this time until the DNA probe will be available. At this time, the patient was not noted with acute illness. The patient requiring recurrent major treatment was placed on hold. Discontinuation of the ethambutol and the Zithromax was done. In the meantime, continue other therapy, plan of management and the supportive plan of care and treatments. LISA ROSARIO MD CM:PNTRANS [id number] LISA PINK MD 01/11/18 0033 interface
--- NOTE | ~2018-01-01 | PR ---
[place], [place] PROGRESS NOTE [id number] UNIT #: [id number] ROOM: 524 DOCTOR: MARLENE PINK MD,LISA BIRTHDATE: [birth year] DOS: 01/05/2018 PULMONARY PROGRESS NOTE SUBJECTIVE: The patient has been kept n.p.o. past midnight for bronchoscopy. He has not been noted with any significant cough. The patient denies symptoms of chest pain. He was lying in the bed this morning of assessment. He was n.p.o. past midnight for bronchoscopy done today for the pulmonary nodules with cavitary and non-cavitary nodules. He has not been noted any symptoms of chest pain or any hemoptysis. The patient has not been reported with any symptoms of fever or chills. His appetite has been noted fair. General weakness and fatigue are still reported. OBJECTIVE: VITAL SIGNS: For the patient, which was recorded shows the temperature remains normal initially, the later rectal temperature noted only 102 degrees Fahrenheit, but oral temperature noted normal. Respiratory rate 18-20, heart rate of 120-116 with mild sinus tachycardia, blood pressure 125/53 to 112/76. Pulse oxygen saturation of the patient noted on 3 liters nasal cannula was 98% saturation. HEENT: Head was atraumatic, eyes nonicterus. NECK: Supple. CARDIOVASCULAR: S1, S2 audible. LUNGS: The patient was noted without any wheezing or crackles at the present time. Breaths are noted mildly diminished bilaterally. ABDOMEN: Soft, nontender. EXTREMITIES: The patient was noted without any acute edema. MUSCULOSKELETAL: No deformities. VISIBLE SKIN: Noted without any lesions or rashes. CENTRAL NERVOUS SYSTEM: No focal deficit. LABORATORY DATA: CBC of the patient this morning, WBC count 3.1, hemoglobin 7.5, 22.3, platelet count 39,000. CMP of the patient this morning noted BUN 23, creatinine 1.57. The AST was noted mildly elevated at 43. Total protein of 5.1, albumin 2.3. PT and PTT that was done yesterday noted as normal PT and PTT. Anti-Brenda-1 antibody for the patient was noted as negative. Remaining workup of the patient for the pulmonary nodule for connective disorder, chronic infection, and TB Gold were all sent for the patient on 01/02/2018 and still remains pending. IMPRESSION: 1. The patient has been noted with bilateral pulmonary nodules with intermittent temperature elevation with persistent pancytopenia. 2. Liver cirrhosis as well. 3. The patient with overall debility, which has been noted chronic as well. 4. Anemia is noted worsening. 5. Rectal temperature elevation. Whether there is an acute infection superimposed or not at this time is unknown. PLAN OF MANAGEMENT: Await the results of the current pulmonary nodule for the [place], [place] PROGRESS NOTE NAME: RIYA SORIA UNIT #: [id number] ROOM: 524 DOCTOR: MARLENE PINK MD,LISA BIRTHDATE: [birth year] patient. Proceed with bronchoscopy. The patient is also scheduled for transesophageal echocardiogram to rule out endocarditis to be done today because of the current nodules, some of them were noted cavitary and they were solid. Continue nutritional support. Other supportive therapy, plan of management and care plan. Usual treatment and other therapies. Additional treatment changes will be made for this patient based on the progression of the illness. Any modification treatment if necessary will be done after the bronchoscopy. LISA ROSARIO MD CM:PNTRANS [id number] LISA PINK MD 01/08/18 1100 interface
--- NOTE | ~2018-01-01 | PR ---
[place], [place] PROGRESS NOTE NAME: RIYA SORIA [facility] #: [id number] UNIT #: [id number] ROOM: 524 DOCTOR: NORIS PINK MD BIRTHDATE: [birth year] DOS: 01/05/2018 SUBJECTIVE: The patient was seen in the preoperative area of the surgical suite today, 01/05/2018 for followup of an abnormal chest x-ray and prior to his transesophageal echocardiogram. He is a 77-year-old man who has a history of dementia, chronic renal insufficiency, hyperglycemia, chronic back pain, cirrhosis and a remote history of lung cancer. He had a partial pulmonectomy 21 years ago. He was admitted to the hospital on this occasion with worsening of his chronic back pain and frequent falls. He has noticed worsening swelling in his legs lately. He was found to be pancytopenic and a CAT scan of his chest showed multiple cavitary lesions consistent with septic pulmonary emboli. Blood cultures are negative thus far. We were asked to do a transesophageal echocardiogram to help determine the cause of his pulmonary findings. PHYSICAL EXAMINATION: VITAL SIGNS: Today, the patient's pulse is 108 and regular, blood pressure is 96/47. He is afebrile. He weighs 91.8 kg and has a body mass index 31.7. HEENT: Normocephalic and atraumatic. Extraocular muscles are intact. Sclerae are clear. Pupils are equal, round and react to light. The oral mucosa is moist. Tongue is midline. NECK: Supple. He has no jugular distention. Carotids are full. I heard no bruits. LUNGS: Respirations were unlabored. His chest was clear. HEART: Had a regular rhythm. He had a fourth heart sound, but no third heart sound or obvious murmur. ABDOMEN: Soft and normoactive. EXTREMITIES: Showed 1+ edema bilaterally. LABORATORY DATA: Hemoglobin is 7.5, hematocrit 23.3, white count 3100, platelet count 39,000. Sodium 142, potassium 4.2, chloride 108, CO2 29, BUN 23, creatinine 1.57. IMPRESSION: 1. Multiple cavitary lung lesions. Possibility of septic emboli is being considered. 2. Obstructive lung disease. 3. Pancytopenia. 4. History of lung cancer, status post left upper lobectomy at age 51. 5. Increased weakness and frequent falls with severe back pain. 6. Chronic obstructive pulmonary disease. 7. Acute on chronic renal insufficiency. 8. Dementia. PLAN: We will plan on doing his transesophageal echocardiogram today. I discussed the procedure with the patient and his including risks of sore throat, difficulty swallowing, vomiting, aspiration, anesthesia reactions, etc. They understand and agreed to proceed. [facility] and I thank the hospitalist physicians for asking our advice regarding the patient's assessment. [place], [place] PROGRESS NOTE NAME: RIYA SORIA UNIT #: [id number] ROOM: 524 DOCTOR: NORIS PINK MD BIRTHDATE: [birth year] NORIS PINK MD CM:PNTRANS [id number] NORIS PINK MD 01/06/18 0835 interface
[~2018-01-01 06:11] MED LIST: LOSARTAN POTASS1 TA5 PO; LOSARTIN PO
[2018-01-01 06:23] VITALS: BP 104/45
[2018-01-01 07:10] LABS: BASO % 0.4 % (0.0-1.0); EOS # 0.1 10*3/uL (0.0-0.4); EOS % 2.6 % (1.0-4.0); HEMATOCRIT 26.5 % (42.0-52.0); LYMPH % 39.8 % (27.0-41.0); MEAN CELL VOLUME 106.4 fl (80.0-94.0); MEAN CORPUSCULAR HGB 36.1 pg (27.0-31.0); MEAN PLATELET VOLUME 11.6 fl (9.6-12.3); MONO # 0.4 10*3/uL (0.1-1.0); MONO % 7.1 % (3.0-9.0); NEUT # 2.5 10*3/uL (2.3-7.9); NEUT % 49.9 % (47.0-73.0); PLATELET COUNT AUTOMATED 65 10*3/uL (130-400); RED BLOOD COUNT 2.49 10*6/uL (4.50-5.90); RED CELL DISTRI WIDTH 14.6 % (0-14.5); WHITE BLOOD COUNT 4.9 10*3/uL (4.8-10.8)
[2018-01-01 07:26] LABS: ALBUMIN 2.7 gm/dl (3.1-4.5); ALKALINE PHOSPHATASE 100 U/L (45-117); BUN 39 mg/dl (7-24); CHLORIDE 95 mmol/L (98-107); CREATININE 3.26 mg/dL (0.70-1.30); LIPASE 393 U/L (73-393); POTASSIUM 2.7 mmol/L (3.5-5.1); SGOT/AST 33 IU/L (3-35); SGPT/ALT 24 U/L (12-78); SODIUM 138 mmol/L (136-145)
[2018-01-01 07:30] LABS: ACT PARTIAL THROMBO TIME 28.8 SECONDS (20.8-31.5); INTERNATIONAL NORM RATIO 1.3 (2.0-3.5)
[2018-01-01 07:42] LABS: TROPONIN I < 0.015 ng/ml (<0.045)
[2018-01-01 08:52] VITALS: BP 113/60
[2018-01-01 08:59] LABS: BILIRUBIN NEGATIVE (NEGATIVE); BLOOD 3+ (NEGATIVE); CLARITY SL CLOUDY (CLEAR); COLOR YELLOW (YELLOW); GLUCOSE NEGATIVE (NEGATIVE); KETONE NEGATIVE (NEGATIVE); LEUKO ESTERASE NEGATIVE (NEGATIVE); NITRITE NEGATIVE (NEGATIVE); PH 6.5 (5.0-9.0); UROBILINOGEN 0.2 E.U./dl (0.2-1.0)
[2018-01-01 09:10] LABS: BACTERIA 1+; RBC TNTC rbc/hpf (0-2)
[2018-01-01 09:30] VITALS: BP 116/50
[2018-01-01] MEDS ORDERED: HYZAAR 50-12.51 EACH PO (11:00)
[2018-01-01] MEDS ORDERED: XANAX0.25 MG PO (11:01)
[2018-01-01] MEDS ORDERED: CELEXA10 MG PO (11:01)
[2018-01-01] MEDS ORDERED: NAMENDA10 MG PO (11:01)
[2018-01-01] MEDS ORDERED: KENALOG 0.025%15 GM T (11:02)
[2018-01-01] MEDS ORDERED: Motrin,Rufen800 MG PO (11:02)
[2018-01-01 11:52] VITALS: BP 113/57
[2018-01-01 14:58] LABS: ABG BASE EXCESS 2.6 mmol/L (-2.0-2.0); ABG HCO3 26.6 mmol/l (22-26); ABG O2 SATURATION 97.4 % (95-97); ARTERIAL BLOOD GAS PCO2 39.6 mmHg (35-45); ARTERIAL BLOOD GAS PH 7.439 (7.35-7.45); ARTERIAL BLOOD GAS PO2 86.8 mmHg (80-90)
[2018-01-01 16:00] VITALS: BP 116/42
[2018-01-01 20:00] VITALS: BP 112/59
[2018-01-02] VITALS: BP 134/56
[2018-01-02 07:19] LABS: BASO % 0.5 % (0.0-1.0); EOS # 0.2 10*3/uL (0.0-0.4); EOS % 2.9 % (1.0-4.0); HEMATOCRIT 27.3 % (42.0-52.0); HEMOGLOBIN 9.2 g/dl (14.0-18.0); LYMPH # 2.7 10*3/uL (1.3-4.4); LYMPH % 45.7 % (27.0-41.0); MEAN CELL VOLUME 107.5 fl (80.0-94.0); MEAN CORPUSCULAR HGB 36.2 pg (27.0-31.0); MEAN CORPUSCULAR HGB CONC 33.7 g/dl (33.0-37.0); MEAN PLATELET VOLUME 11.1 fl (9.6-12.3); MONO # 0.5 10*3/uL (0.1-1.0); MONO % 9.1 % (3.0-9.0); NEUT # 2.4 10*3/uL (2.3-7.9); NEUT % 41.6 % (47.0-73.0); PLATELET COUNT AUTOMATED 63 10*3/uL (130-400); RED BLOOD COUNT 2.54 10*6/uL (4.50-5.90); RED CELL DISTRI WIDTH 14.6 % (0-14.5); WHITE BLOOD COUNT 5.8 10*3/uL (4.8-10.8)
[2018-01-02 07:56] LABS: ALBUMIN 2.6 gm/dl (3.1-4.5)
[2018-01-02 08:00] VITALS: BP 151/68
[2018-01-02 08:08] LABS: CREATININE 2.6 mg/dL (0.70-1.30); FREE T4 1.18 ng/dl (0.76-1.46); THYROID STIM HORMONE (HS) 2.71 uIU/ml (0.358-4.75)
[2018-01-02 08:15] LABS: VITAMIN D, 25-HYDROXY 21.9 ng/mL (30-100)
[2018-01-02 08:17] LABS: POTASSIUM 3.7 mmol/L (3.5-5.1)
[2018-01-02 17:30] VITALS: BP 70/46
[2018-01-02 19:40] VITALS: BP 102/58
[2018-01-03] VITALS: BP 110/38
[2018-01-03 04:00] VITALS: BP 100/50
[2018-01-03 06:32] LABS: HEMATOCRIT 22.5 % (42.0-52.0); HEMOGLOBIN 7.5 g/dl (14.0-18.0); MEAN CELL VOLUME 109.8 fl (80.0-94.0); MEAN CORPUSCULAR HGB 36.6 pg (27.0-31.0); MEAN CORPUSCULAR HGB CONC 33.3 g/dl (33.0-37.0); MEAN PLATELET VOLUME 11.5 fl (9.6-12.3); RED BLOOD COUNT 2.05 10*6/uL (4.50-5.90); RED CELL DISTRI WIDTH 14.6 % (0-14.5); WHITE BLOOD COUNT 2.8 10*3/uL (4.8-10.8)
[2018-01-03 06:36] LABS: PLATELET COUNT AUTOMATED 41 10*3/uL (130-400)
[2018-01-03 07:08] LABS: ALBUMIN 2.3 gm/dl (3.1-4.5); CREATININE 2.26 mg/dL (0.70-1.30); PHOSPHOROUS 3.8 mg/dL (2.5-4.9); POTASSIUM 3.4 mmol/L (3.5-5.1); TOTAL PROTEIN 5.2 gm/dL (6.4-8.2)
[2018-01-03 07:29] LABS: PLATELET SUFFICIENCY LOW (NORMAL); TOTAL CELLS COUNTED 100 #CELLS
[2018-01-03 07:30] LABS: OVALOCYTES FEW
[2018-01-03 08:00] VITALS: BP 131/61
[2018-01-03 08:11] LABS: IMMUNOGLOBULIN M, QNT 62 mg/dL (15-143)
[2018-01-03 12:00] VITALS: BP 123/70
[2018-01-03 13:18] LABS: ACT PARTIAL THROMBO TIME 31.6 SECONDS (20.8-31.5); INTERNATIONAL NORM RATIO 1.3 (2.0-3.5)
[2018-01-03 15:05] LABS: RETICULOCYTE % 2.34 % (0.50-2.50)
[2018-01-03 15:52] LABS: FERRITIN 827.1 ng/mL (22.0-322.0)
[2018-01-03 16:00] VITALS: BP 100/62
[2018-01-03 20:00] VITALS: BP 117/55
[2018-01-04] VITALS: BP 126/57
[2018-01-04 05:35] LABS: CREATININE 1.9 mg/dL (0.70-1.30); POTASSIUM 3.8 mmol/L (3.5-5.1)
[2018-01-04 06:18] LABS: HEMATOCRIT 22.1 % (42.0-52.0); HEMOGLOBIN 7.4 g/dl (14.0-18.0); MEAN CORPUSCULAR HGB 36.8 pg (27.0-31.0); MEAN CORPUSCULAR HGB CONC 33.5 g/dl (33.0-37.0); MEAN PLATELET VOLUME 11.8 fl (9.6-12.3); PLATELET COUNT AUTOMATED 39 10*3/uL (130-400); RED BLOOD COUNT 2.01 10*6/uL (4.50-5.90); RED CELL DISTRI WIDTH 14.6 % (0-14.5); WHITE BLOOD COUNT 2.9 10*3/uL (4.8-10.8)
[2018-01-04 07:08] LABS: OVALOCYTES FEW; PLATELET SUFFICIENCY LOW (NORMAL); ROULEAUX MODERATE; TOTAL CELLS COUNTED 100 #CELLS
[2018-01-04 08:00] VITALS: BP 130/76
[2018-01-04 12:00] VITALS: BP 102/44
[2018-01-04 16:00] VITALS: BP 115/55
[2018-01-04 16:30] LABS: HEMATOCRIT 22.8 % (42.0-52.0); HEMOGLOBIN 7.4 g/dl (14.0-18.0); MEAN CELL VOLUME 111.8 fl (80.0-94.0); MEAN CORPUSCULAR HGB 36.3 pg (27.0-31.0); MEAN CORPUSCULAR HGB CONC 32.5 g/dl (33.0-37.0); MEAN PLATELET VOLUME 10.7 fl (9.6-12.3); PLATELET COUNT AUTOMATED 41 10*3/uL (130-400); RED BLOOD COUNT 2.04 10*6/uL (4.50-5.90); RED CELL DISTRI WIDTH 14.6 % (0-14.5); WHITE BLOOD COUNT 3.1 10*3/uL (4.8-10.8)
[2018-01-04 16:37] LABS: ACT PARTIAL THROMBO TIME 31.2 SECONDS (20.8-31.5); INTERNATIONAL NORM RATIO 1.3 (2.0-3.5)
[2018-01-04 16:51] LABS: PLATELET SUFFICIENCY LOW (NORMAL); TOTAL CELLS COUNTED 100 #CELLS
[2018-01-04 16:52] LABS: BURR CELLS FEW
[2018-01-04 20:00] VITALS: BP 116/62
[2018-01-05] VITALS (10 sets, daily range): BP systolic 96–135; BP diastolic 47–76
[2018-01-05 00:06] LABS: IGG SUBCLASS 1 872 mg/dL (248-810); IGG SUBCLASS 2 263 mg/dL (130-555); IGG SUBCLASS 3 83 mg/dL (15-102); IGG SUBCLASS 4 25 mg/dL (2-96); IMMUNOGLOBULIN G, QNT 1178 mg/dL (700-1600)
[2018-01-05 06:15] LABS: HEMATOCRIT 22.3 % (42.0-52.0); HEMOGLOBIN 7.5 g/dl (14.0-18.0); MEAN CELL VOLUME 111.5 fl (80.0-94.0); MEAN CORPUSCULAR HGB 37.5 pg (27.0-31.0); MEAN CORPUSCULAR HGB CONC 33.6 g/dl (33.0-37.0); MEAN PLATELET VOLUME 11.4 fl (9.6-12.3); PLATELET COUNT AUTOMATED 39 10*3/uL (130-400); RED CELL DISTRI WIDTH 14.6 % (0-14.5); WHITE BLOOD COUNT 3.1 10*3/uL (4.8-10.8)
[2018-01-05 06:31] LABS: ALBUMIN 2.3 gm/dl (3.1-4.5); POTASSIUM 4.2 mmol/L (3.5-5.1)
[2018-01-05 06:36] LABS: CREATININE 1.57 mg/dL (0.70-1.30); TOTAL PROTEIN 5.1 gm/dL (6.4-8.2)
[2018-01-05 07:48] LABS: PLATELET SUFFICIENCY LOW (NORMAL); POLYCHROMASIA SLIGHT; TOTAL CELLS COUNTED 100 #CELLS
[2018-01-05 13:03] LABS: ATYPICAL PANCA <1:20 titer (Neg:<1:20); CYTOPLASMIC (C-ANCA) <1:20 titer (Neg:<1:20)
[2018-01-05 14:05] LABS: ALDOLASE 002030 3.5 U/L (3.3-10.3); ANGIOTENSIN-CONVERTING ENZYME 94 U/L (14-82); IMMUNOGLOBULIN IgE 002170 218 IU/mL (0-100)
[2018-01-05 16:09] LABS: ALBUMIN 2.4 g/dL (2.9-4.4); ALPHA-1-GLOBULIN 0.2 g/dL (0.0-0.4); ALPHA-2-GLOBULIN 0.3 g/dL (0.4-1.0); BETA GLOBULIN 0.7 g/dL (0.7-1.3); GAMMA GLOBULIN 1.1 g/dL (0.4-1.8); GLOBULIN, TOTAL 2.3 g/dL (2.2-3.9); M-SPIKE Not Observed g/dL (Not Observed); TOTAL PROTEIN, SERUM 4.7 g/dL (6.0-8.5)
[2018-01-06] VITALS (11 sets, daily range): BP systolic 99–118; BP diastolic 33–86
[2018-01-06 06:12] LABS: HEMATOCRIT 20.1 % (42.0-52.0); HEMOGLOBIN 6.6 g/dl (14.0-18.0); MEAN CORPUSCULAR HGB 36.5 pg (27.0-31.0); MEAN CORPUSCULAR HGB CONC 32.8 g/dl (33.0-37.0); MEAN PLATELET VOLUME 9.7 fl (9.6-12.3); RED BLOOD COUNT 1.81 10*6/uL (4.50-5.90); RED CELL DISTRI WIDTH 14.4 % (0-14.5); WHITE BLOOD COUNT 4.1 10*3/uL (4.8-10.8)
[2018-01-06 06:36] LABS: ALBUMIN 2.1 gm/dl (3.1-4.5)
[2018-01-06 06:40] LABS: CREATININE 1.69 mg/dL (0.70-1.30); PHOSPHOROUS 2.5 mg/dL (2.5-4.9); TOTAL PROTEIN 4.7 gm/dL (6.4-8.2)
[2018-01-06 06:49] LABS: TOTAL CELLS COUNTED 100 #CELLS
[2018-01-06 06:50] LABS: PLATELET SUFFICIENCY LOW (NORMAL); POLYCHROMASIA SLIGHT
[2018-01-06 06:51] LABS: PLATELET COUNT AUTOMATED 28 10*3/uL (130-400)
[2018-01-06 17:04] LABS: ACID FAST SPEC PROCESSING Concentration (.)
[2018-01-07] VITALS: BP 112/49
[2018-01-07 00:05] VITALS: BP 95/71
[2018-01-07 06:39] LABS: MEAN CORPUSCULAR HGB 34.8 pg (27.0-31.0); MEAN CORPUSCULAR HGB CONC 33.9 g/dl (33.0-37.0); PLATELET COUNT AUTOMATED 35 10*3/uL (130-400); RED BLOOD COUNT 2.82 10*6/uL (4.50-5.90); RED CELL DISTRI WIDTH 19.6 % (0-14.5); WHITE BLOOD COUNT 5.7 10*3/uL (4.8-10.8)
[2018-01-07 06:40] LABS: HEMATOCRIT 28.9 % (42.0-52.0); HEMOGLOBIN 9.8 g/dl (14.0-18.0); MEAN CELL VOLUME 102.5 fl (80.0-94.0)
[2018-01-07 06:51] LABS: CREATININE 1.65 mg/dL (0.70-1.30); POTASSIUM 3.9 mmol/L (3.5-5.1)
[2018-01-07 07:01] LABS: TOTAL CELLS COUNTED 100 #CELLS
[2018-01-07 07:02] LABS: BURR CELLS FEW; PLATELET SUFFICIENCY LOW (NORMAL); POLYCHROMASIA SLIGHT
[2018-01-07 08:00] VITALS: BP 114/90
[2018-01-07 09:06] LABS: HIV 1+2 AB + HIV1 P24 AG Non Reactive (Non Reactive)
[2018-01-07 10:08] LABS: HEPATITIS B SURFACE AG Negative (Negative); HEPATITIS C VIRUS ANTIBODY <0.1 s/co (0.0-0.9)
[2018-01-07 12:00] VITALS: BP 117/50
[2018-01-07 16:00] VITALS: BP 128/78
[2018-01-07 16:08] LABS: ALBUMIN, URINE 49.2 % (.); ALPHA - 2 - GLOBULIN, URINE 5.5 % (.); ALPHA-1-GLOBULIN, URINE 3.8 % (.); BETA GLOBULIN, URINE 23.4 % (.); GAMMA GLOBULIN, URINE 18.1 % (.); M-SPIKE, % Not Observed % (Not Observed); PROTEIN,TOTAL - URINE RANDOM 59.6 mg/dL (Not Estab.)
[2018-01-07 20:00] VITALS: BP 125/61
[2018-01-08] VITALS: BP 134/52
[2018-01-08 06:55] LABS: HEMATOCRIT 27.6 % (42.0-52.0); HEMOGLOBIN 9.2 g/dl (14.0-18.0); MEAN CELL VOLUME 102.6 fl (80.0-94.0); MEAN CORPUSCULAR HGB 34.2 pg (27.0-31.0); MEAN CORPUSCULAR HGB CONC 33.3 g/dl (33.0-37.0); MEAN PLATELET VOLUME 11.4 fl (9.6-12.3); PLATELET COUNT AUTOMATED 34 10*3/uL (130-400); RED BLOOD COUNT 2.69 10*6/uL (4.50-5.90); RED CELL DISTRI WIDTH 18.5 % (0-14.5); WHITE BLOOD COUNT 4.2 10*3/uL (4.8-10.8)
[2018-01-08 07:08] LABS: CREATININE 1.42 mg/dL (0.70-1.30); PHOSPHOROUS 2.2 mg/dL (2.5-4.9); POTASSIUM 3.7 mmol/L (3.5-5.1)
[2018-01-08 07:24] LABS: ALBUMIN 2.2 gm/dl (3.1-4.5)
[2018-01-08 07:30] LABS: TOTAL CELLS COUNTED 100 #CELLS
[2018-01-08 07:31] LABS: PLATELET SUFFICIENCY LOW (NORMAL); POLYCHROMASIA SLIGHT
[2018-01-08 08:00] VITALS: BP 123/60
[2018-01-08 12:00] VITALS: BP 130/60
[2018-01-08 15:07] LABS: CRYPTOCOCCUS ANTIGEN Negative (Negative)
[2018-01-08 16:00] VITALS: BP 123/60
[2018-01-08 20:00] VITALS: BP 127/55
[2018-01-09] VITALS: BP 126/61
[2018-01-09 02:07] LABS: COCCIDIOIDES IGG 0.2 IV (<=0.9); COCCIDIOIDES IGM 0.3 IV (<=0.9)
[2018-01-09 07:05] LABS: MITOGEN VALUE 5.68 IU/mL (.); TB Ag MINUS NIL VALUE <0.00 IU/mL (.); TB Ag VALUE 0.08 IU/mL (.); TB GOLD Negative (Negative)
[2018-01-09 07:32] LABS: HEMATOCRIT 24.7 % (42.0-52.0); HEMOGLOBIN 8.4 g/dl (14.0-18.0); MEAN CELL VOLUME 102.1 fl (80.0-94.0); MEAN CORPUSCULAR HGB 34.7 pg (27.0-31.0); MEAN PLATELET VOLUME 10.8 fl (9.6-12.3); PLATELET COUNT AUTOMATED 32 10*3/uL (130-400); RED BLOOD COUNT 2.42 10*6/uL (4.50-5.90); RED CELL DISTRI WIDTH 17.2 % (0-14.5)
[2018-01-09 08:00] VITALS: BP 136/68
[2018-01-09 08:03] LABS: POTASSIUM 3.7 mmol/L (3.5-5.1)
[2018-01-09 08:04] LABS: CREATININE 1.41 mg/dL (0.70-1.30); PHOSPHOROUS 2.7 mg/dL (2.5-4.9)
[2018-01-09 08:05] LABS: BURR CELLS FEW; PLATELET SUFFICIENCY LOW (NORMAL); ROULEAUX MODERATE; TOTAL CELLS COUNTED 100 #CELLS
[2018-01-09 12:00] VITALS: BP 100/54
[2018-01-09 16:00] VITALS: BP 118/51
[2018-01-09 20:00] VITALS: BP 111/73
[2018-01-10] VITALS: BP 103/56
[2018-01-10 06:33] LABS: HEMATOCRIT 24.5 % (42.0-52.0); HEMOGLOBIN 8.2 g/dl (14.0-18.0); MEAN CELL VOLUME 103.8 fl (80.0-94.0); MEAN CORPUSCULAR HGB 34.7 pg (27.0-31.0); MEAN CORPUSCULAR HGB CONC 33.5 g/dl (33.0-37.0); MEAN PLATELET VOLUME 10.8 fl (9.6-12.3); PLATELET COUNT AUTOMATED 32 10*3/uL (130-400); RED BLOOD COUNT 2.36 10*6/uL (4.50-5.90); WHITE BLOOD COUNT 2.7 10*3/uL (4.8-10.8)
[2018-01-10 06:41] LABS: BUN 28 mg/dl (7-24); CHLORIDE 106 mmol/L (98-107); CREATININE 1.37 mg/dL (0.70-1.30); PHOSPHOROUS 2.9 mg/dL (2.5-4.9); POTASSIUM 3.9 mmol/L (3.5-5.1); SODIUM 141 mmol/L (136-145)
[2018-01-10 07:02] LABS: BASOPHILS 1 % (0-1); TOTAL CELLS COUNTED 100 #CELLS
[2018-01-10 07:03] LABS: PLATELET SUFFICIENCY LOW (NORMAL); POLYCHROMASIA SLIGHT
[2018-01-10 08:03] VITALS: BP 121/54
[2018-01-10 12:15] VITALS: BP 125/50
[2018-01-10 16:07] VITALS: BP 113/54
[2018-01-10 20:00] VITALS: BP 133/61
[2018-01-11] VITALS: BP 138/62
[2018-01-11 07:46] VITALS: BP 142/61
[2018-01-11 11:43] VITALS: BP 134/55
[2018-01-11 16:00] VITALS: BP 104/30
[2018-01-11 20:00] VITALS: BP 127/68
[2018-01-12] VITALS: BP 131/48
[2018-01-12 08:00] VITALS: BP 147/81
[2018-01-12 12:00] VITALS: BP 136/83
[2018-01-12 16:00] VITALS: BP 89/58
[2018-01-12 16:12] VITALS: BP 102/64; BP 12/64
[2018-01-12 20:00] VITALS: BP 119/55
[2018-01-13] VITALS: BP 126/61
[2018-01-13 08:00] VITALS: BP 134/65
[2018-01-13 12:00] VITALS: BP 133/60
[2018-01-13] MEDS ORDERED: Vitamin D PO (14:03)
[2018-01-13] MEDS ORDERED: FLOMAX0.4 MG PO (14:03)
[2018-01-23 17:10] LABS: ACID FAST CULTURE Positive (.); M AVIUM COMPLEX Positive (.); M GORDONAE Not Indicated (.); M KANSASII Not Indicated (.); M TUBERCULOSIS COMPLEX Negative (.)
== END 2018-01-13 16:55 | disposition other institution (70) | DRG 166 ==
LOC: ED 06:11 → 5E 08:23 → EDHOLD 08:23 → 4E 08:23 → 5E 01-02 12:02
PROVIDERS: Emergency Medicine; Emergency Medicine Emergency Medical Services; Family Medicine; Internal Medicine; Internal Medicine Cardiovascular Disease; Internal Medicine Critical Care Medicine; Internal Medicine Hematology & Oncology; Internal Medicine Hospice and Palliative Medicine
PROC: 0BC68ZZ Extirpation of Matter from Right Lower Lobe Bronchus, Via Natural or Artificial Opening Endoscopic (ICD-10-PCS; principal; 2018-01-05)
PROC: 0BC88ZZ Extirpation of Matter from Left Upper Lobe Bronchus, Via Natural or Artificial Opening Endoscopic (ICD-10-PCS; principal; 2018-01-05)
PROC: B24BZZ4 Ultrasonography of Heart with Aorta, Transesophageal (ICD-10-PCS; principal; 2018-01-05)
PROC: 0BC18ZZ Extirpation of Matter from Trachea, Via Natural or Artificial Opening Endoscopic (ICD-10-PCS; principal; 2018-01-05)
PROC: 0BC38ZZ Extirpation of Matter from Right Main Bronchus, Via Natural or Artificial Opening Endoscopic (ICD-10-PCS; principal; 2018-01-05)
PROC: 0BC58ZZ Extirpation of Matter from Right Middle Lobe Bronchus, Via Natural or Artificial Opening Endoscopic (ICD-10-PCS; principal; 2018-01-05)
PROC: 0BC98ZZ Extirpation of Matter from Lingula Bronchus, Via Natural or Artificial Opening Endoscopic (ICD-10-PCS; principal; 2018-01-05)
PROC: 0BC78ZZ Extirpation of Matter from Left Main Bronchus, Via Natural or Artificial Opening Endoscopic (ICD-10-PCS; principal; 2018-01-05)
PROC: 0B9C8ZX Drainage of Right Upper Lung Lobe, Via Natural or Artificial Opening Endoscopic, Diagnostic (ICD-10-PCS; principal; 2018-01-05)
PROC: 0BC28ZZ Extirpation of Matter from Carina, Via Natural or Artificial Opening Endoscopic (ICD-10-PCS; principal; 2018-01-05)
PROC: 0BC48ZZ Extirpation of Matter from Right Upper Lobe Bronchus, Via Natural or Artificial Opening Endoscopic (ICD-10-PCS; principal; 2018-01-05)
PROC: 30233N1 Transfusion of Nonautologous Red Blood Cells into Peripheral Vein, Percutaneous Approach (ICD-10-PCS; 2018-01-06)
DX: J18.1 Lobar pneumonia, unspecified organism (principal); N17.0 Acute kidney failure with tubular necrosis; J96.01 Acute respiratory failure with hypoxia; E43 Unspecified severe protein-calorie malnutrition; G93.41 Metabolic encephalopathy; D61.818 Other pancytopenia; D69.6 Thrombocytopenia, unspecified; E67.8 Other specified hyperalimentation; R16.1 Splenomegaly, not elsewhere classified; E87.2 Acidosis; M31.0 Hypersensitivity angiitis; Z85.46 Personal history of malignant neoplasm of prostate; J43.2 Centrilobular emphysema; E87.8 Other disorders of electrolyte and fluid balance, not elsewhere classified; E83.39 Other disorders of phosphorus metabolism; J98.4 Other disorders of lung; E80.6 Other disorders of bilirubin metabolism; E87.6 Hypokalemia; R73.9 Hyperglycemia, unspecified; I10 Essential (primary) hypertension; D53.9 Nutritional anemia, unspecified; F32.9 Major depressive disorder, single episode, unspecified; F41.1 Generalized anxiety disorder; F03.90 Unspecified dementia, unspecified severity, without behavioral disturbance, psychotic disturbance, mood disturbance, and anxiety; M54.5 Low back pain; E66.09 Other obesity due to excess calories; K57.30 Diverticulosis of large intestine without perforation or abscess without bleeding; R29.6 Repeated falls; G89.29 Other chronic pain; N40.0 Benign prostatic hyperplasia without lower urinary tract symptoms; E78.5 Hyperlipidemia, unspecified; W18.39XA Other fall on same level, initial encounter; M50.30 Other cervical disc degeneration, unspecified cervical region; R91.1 Solitary pulmonary nodule; D75.89 Other specified diseases of blood and blood-forming organs; N28.9 Disorder of kidney and ureter, unspecified; R74.0 Nonspecific elevation of levels of transaminase and lactic acid dehydrogenase [LDH]; I73.9 Peripheral vascular disease, unspecified; K70.30 Alcoholic cirrhosis of liver without ascites; Z90.2 Acquired absence of lung [part of]; Z85.118 Personal history of other malignant neoplasm of bronchus and lung; Y93.89 Activity, other specified; Y92.89 Other specified places as the place of occurrence of the external cause; Y99.8 Other external cause status; Z79.899 Other long term (current) drug therapy; Z90.49 Acquired absence of other specified parts of digestive tract; Z87.891 Personal history of nicotine dependence; Z82.49 Family history of ischemic heart disease and other diseases of the circulatory system; Z68.31 Body mass index [BMI] 31.0-31.9, adult

== ENCOUNTER 2018-01-25 15:40 | Emergency (ER) | payer MEDICARE, OTHER ==
[~2018-01-25] VITALS: Ht 180.3 cm; Wt 99.8 kg
--- NOTE | ~2018-01-25 | EKG ---
[place], [place] ELECTROCARDIOGRAM REPORT NAME: RIYA SORIA UNIT #: [id number] ROOM: DOCTOR: EPIPHANY DRAFT REPORT BIRTHDATE: [birth year] [facility] Test Date: 2018-01-25 Test Time: 16:35:50 Pat Name: RIYA SORIA Department: Room: Gender: Psych Nurse: : 1940 Requested By: MEENU RUBY Order Number: [id number] Reading MD: Gricelda Brennan MD Measurements Intervals [place] Rate: 98 P: 69 CT: 194 QRS: 1 QRSD: 91 T: 76 QT: 390 QTc: 499 Interpretive Statements Sinus tachycardia Multiple premature complexes, vent \T\ supraven Low voltage, extremity leads Consider anterior infarct Electronically Signed On 01-27-2018 9:26:28 PDT by Gricelda Brennan MD CM:EKGRPT:ELECTROCARDIOGRAM REPORT [id number] [id number] MEENU JONES DRAFT REPORT MEENU RUBY MD
[~2018-01-25 15:40] MED LIST changes: +CELEXA10 MG PO; +FLOMAX0.4 MG PO; +HYZAAR 50-12.51 EACH PO; +KENALOG 0.025%15 GM T; +Motrin,Rufen800 MG PO; +NAMENDA10 MG PO; +Vitamin D PO; +XANAX0.25 MG PO
[2018-01-25 15:59] LABS: HEMATOCRIT 26.4 % (42.0-52.0); HEMOGLOBIN 8.6 g/dl (14.0-18.0); MEAN CELL VOLUME 104.8 fl (80.0-94.0); MEAN CORPUSCULAR HGB 34.1 pg (27.0-31.0); MEAN CORPUSCULAR HGB CONC 32.6 g/dl (33.0-37.0); MEAN PLATELET VOLUME 10.3 fl (9.6-12.3); PLATELET COUNT AUTOMATED 64 10*3/uL (130-400); RED BLOOD COUNT 2.52 10*6/uL (4.50-5.90); RED CELL DISTRI WIDTH 18.6 % (0-14.5); WHITE BLOOD COUNT 4.8 10*3/uL (4.8-10.8)
[2018-01-25 16:08] LABS: ACT PARTIAL THROMBO TIME 29.2 SECONDS (20.8-31.5); INTERNATIONAL NORM RATIO 1.4 (2.0-3.5)
[2018-01-25 16:16] LABS: ALBUMIN 2.5 gm/dl (3.1-4.5); ALKALINE PHOSPHATASE 116 U/L (45-117); BUN 21 mg/dl (7-24); CHLORIDE 103 mmol/L (98-107); CREATININE 1.34 mg/dL (0.70-1.30); POTASSIUM 3.1 mmol/L (3.5-5.1); SGOT/AST 89 IU/L (3-35); SGPT/ALT 35 U/L (12-78); SODIUM 138 mmol/L (136-145); TOTAL PROTEIN 5.8 gm/dL (6.4-8.2)
[2018-01-25 16:17] LABS: TROPONIN I 0.045 ng/ml (<0.045)
[2018-01-25 16:19] LABS: BASOPHILS 1 % (0-1); TOTAL CELLS COUNTED 100 #CELLS
[2018-01-25 16:20] LABS: BURR CELLS FEW; PLATELET SUFFICIENCY LOW (NORMAL)
[2018-01-25] MEDS ORDERED: POTASSIUM40 MEQ/15 PO (18:06)
[2018-01-25] MEDS ORDERED: MAGOX 400400 MG PO (18:06)
== END 2018-01-25 19:07 | disposition home or self-care (01) ==
LOC: ED 15:40
PROVIDERS: Emergency Medicine
DX: M25.551 Pain in right hip (principal); E87.6 Hypokalemia; E83.42 Hypomagnesemia; I10 Essential (primary) hypertension; M50.30 Other cervical disc degeneration, unspecified cervical region; E66.9 Obesity, unspecified; M85.80 Other specified disorders of bone density and structure, unspecified site; Z87.891 Personal history of nicotine dependence; Z79.899 Other long term (current) drug therapy; Z88.8 Allergy status to other drugs, medicaments and biological substances; W18.30XA Fall on same level, unspecified, initial encounter; Y93.89 Activity, other specified; Y92.531 Health care provider office as the place of occurrence of the external cause; Y99.8 Other external cause status

== ENCOUNTER 2018-01-28 11:32 | Inpatient (IN) | payer MEDICARE, OTHER ==
[~2018-01-28] VITALS: Ht 177.8 cm; Wt 71.7 kg
--- NOTE | ~2018-01-28 | EKG ---
[place], [place] ELECTROCARDIOGRAM REPORT NAME: RIYA SORIA UNIT #: [id number] ROOM: [facility] DOCTOR: ROBERT DRAFT REPORT BIRTHDATE: [birth year] [facility] Test Date: 2018-01-28 Test Time: 12:01:44 Pat Name: RIYA SORIA Department: Room: Gender: Distributor Sales Consultant: : 1940 Requested By: MEENU RUBY Order Number: [id number] Reading MD: Gricelda Brennan MD Measurements Intervals [place] Rate: 102 P: 0 GA: 87 QRS: -2 QRSD: 91 T: 131 QT: 386 QTc: 503 Interpretive Statements Sinus tachycardia PAC's Low voltage, extremity leads Nonspecific T abnormalities, lateral leads Electronically Signed On 01-30-2018 11:03:49 PDT by Gricelda Brennan MD CM:EKGRPT:ELECTROCARDIOGRAM REPORT 1201 1103 MEENU JONES DRAFT REPORT MEENU RUBY MD
--- NOTE | ~2018-01-28 | CON ---
[place], [place] REPORT OF CONSULTATION NAME: RIYA SORIA UNIT #: [id number] ROOM: 510 DOCTOR: BEBA SABA MD BIRTHDATE: [birth year] DOS: 01/30/2018 ATTENDING PHYSICIAN: Dr. Charles Florez and Dr. True Alcocer. HISTORY OF PRESENT ILLNESS: The patient is a 77-year-old gentleman presently admitted to [facility] with advanced adult failure to thrive. He was recently diagnosed as havin. RANDI lung infection with cavitary lesions. 2. The patient has history of chronic congestive heart failure. 3. Chronic liver cirrhosis. 4. Compression fractures of T12 and L2. 5. Degenerative disk disease. 6. Late onset Alzheimer's type dementia. 7. Diverticulosis of the colon. 8. Generalized anxiety disorder. 9. Hypertension. 10. History of lung cancer. 11. History of severe protein calorie malnutrition. The patient in very poor health for which palliative consult was obtained. The patient has declining health status with new diagnosis of RANDI and he is not a good candidate for antibiotic treatment, considering he has advanced liver cirrhosis and liver failure. The patient is very weak and pleasantly confused, unable to provide much history, but there is no chest pain, no increasing shortness of breath, no other GI or urinary symptoms. When the patient is moved, he does appear to be in some pain and discomfort and he has compression fractures of his back as mentioned above. REVIEW OF SYSTEMS: LUNGS: The patient has chronic shortness of breath. GASTROINTESTINAL: No nausea, vomiting, diarrhea or constipation. CARDIOVASCULAR: No chest pains or palpitations. MEDICATIONS: Namenda, potassium, Flomax, Motrin, Lasix, Cymbalta, Celexa, Xanax, vitamin D. ALLERGIES: ANTIHISTAMINES. FAMILY HISTORY: Noncontributory. PAST SURGICAL HISTORY: Appendectomy, cholecystectomy, lobectomy of the lung. PHYSICAL EXAMINATION: GENERAL: Awake, alert, in no visible distress, pleasantly confused. Generalized weakness and muscle wasting and mental confusion. VITAL SIGNS: Blood pressure 106/59, heart rate 107 beats per minute, breathing 16 times per minute, afebrile. HEENT AND NECK: Extraocular movements are intact. Sclerae are anicteric. Oral [place], [place] REPORT OF CONSULTATION NAME: RIYA SORIA UNIT #: [id number] ROOM: 510 DOCTOR: BEBA SABA MD BIRTHDATE: [birth year] mucosa is moist and clean. No obvious facial weakness. Neck is supple without any lymphadenopathy. No thyromegaly. No JVD. No carotid arterial bruits. LUNGS: Clear to auscultation. No wheezing. No rhonchi. CARDIOVASCULAR SYSTEM: Heart rate is regular in rate and rhythm. S1 and S2 normally audible. No significant murmur or any other abnormal cardiac sounds. ABDOMEN: Soft, nontender. No obvious organomegaly. Bowel sounds are present. No obvious herniation. EXTREMITIES: Without significant cyanosis or edema. Warm to touch. CENTRAL NERVOUS SYSTEM: Alert and oriented x 3. Cranial nerves II-XII are intact. Speech is normal. The patient is able to move all extremities. Normal muscle strength. Deep tendon reflexes are equal on both sides. Plantars were downgoing. LABORATORY DATA: Blood cultures negative. BUN and creatinine 19 and 1.47, potassium 3.1. Urine cultures grew Enterococcus faecalis. MRI of the brain with moderate atrophy. CT of the chest showed multiple small cavitary nodular densities bilaterally. IMPRESSION AND PLAN: The patient with advanced adult failure to thrive, severe protein-calorie malnutrition with gradual decline in health along with mental confusion, RANDI infection along with severe end-stage liver cirrhosis. The patient's prognosis is poor and he is not good candidate for RANDI infection treatment, which was evaluated by infectious disease specialist. A good discussion was held with the patient's , Kelsie and she decided to first make comfort care measures only and later on she has decided to keep him on hospice care. Plan is to transfer the patient to [facility] under hospice care. Case discussed with the hospitalist staff at [facility], Dr. Alcocer and patient's , nursing staff. BEBA SABA MD CM:CONSTR:REPORT OF CONSULTATION 1818 01/31/18 1533 interface
[~2018-01-28 11:32] MED LIST changes: +MAGOX 400400 MG PO; +POTASSIUM40 MEQ/15 PO
[2018-01-28 11:39] VITALS: BP 128/33
[2018-01-28 12:03] LABS: BILIRUBIN NEGATIVE (NEGATIVE); BLOOD NEGATIVE (NEGATIVE); CLARITY CLEAR (CLEAR); COLOR YELLOW (YELLOW); GLUCOSE NEGATIVE (NEGATIVE); KETONE NEGATIVE (NEGATIVE); LEUKO ESTERASE NEGATIVE (NEGATIVE); NITRITE NEGATIVE (NEGATIVE); SPECIFIC GRAVITY <= 1.005 (1.005-1.030)
[2018-01-28 12:07] VITALS: BP 103/69
[2018-01-28 12:11] LABS: BASO % 0.3 % (0.0-1.0); EOS # 0.1 10*3/uL (0.0-0.4); EOS % 2.1 % (1.0-4.0); HEMOGLOBIN 8.1 g/dl (14.0-18.0); LYMPH # 1.1 10*3/uL (1.3-4.4); MEAN CELL VOLUME 105.7 fl (80.0-94.0); MEAN CORPUSCULAR HGB 35.7 pg (27.0-31.0); MEAN CORPUSCULAR HGB CONC 33.8 g/dl (33.0-37.0); MONO # 0.3 10*3/uL (0.1-1.0); MONO % 8.8 % (3.0-9.0); NEUT # 2.3 10*3/uL (2.3-7.9); NEUT % 59.5 % (47.0-73.0); PLATELET COUNT AUTOMATED 53 10*3/uL (130-400); RED BLOOD COUNT 2.27 10*6/uL (4.50-5.90); RED CELL DISTRI WIDTH 18.9 % (0-14.5); WHITE BLOOD COUNT 3.9 10*3/uL (4.8-10.8)
[2018-01-28 12:22] LABS: BACTERIA 3+; RBC 0-2 rbc/hpf (0-2); WBC 0-2 wbc/hpf (0-5)
[2018-01-28 12:27] LABS: ACT PARTIAL THROMBO TIME 29.1 SECONDS (20.8-31.5); INTERNATIONAL NORM RATIO 1.4 (2.0-3.5)
[2018-01-28 12:28] LABS: ALBUMIN 2.7 gm/dl (3.1-4.5); CREATININE 1.4 mg/dL (0.70-1.30); POTASSIUM 3.7 mmol/L (3.5-5.1); TOTAL PROTEIN 5.8 gm/dL (6.4-8.2)
[2018-01-28 12:32] LABS: TROPONIN I 0.05 ng/ml (<0.045)
[2018-01-28 12:40] VITALS: BP 110/70
[2018-01-28 14:12] LABS: ABG BASE EXCESS 1.5 mmol/L (-2.0-2.0); ABG HCO3 24.9 mmol/l (22-26); ABG O2 SATURATION 93.9 % (95-97); ARTERIAL BLOOD GAS PCO2 35.2 mmHg (35-45); ARTERIAL BLOOD GAS PH 7.462 (7.35-7.45); ARTERIAL BLOOD GAS PO2 64.9 mmHg (80-90)
[2018-01-28] MEDS ORDERED: VITAMIN D31000 UNI1 PO (14:44)
[2018-01-28] MEDS ORDERED: CYMBALTA60 MG PO (14:47)
[2018-01-28] MEDS ORDERED: LASIX40 MG PO (14:48)
[2018-01-28 14:49] VITALS: BP 127/73
[2018-01-28] MEDS ORDERED: KLOR-CON M2020 ME1 PO (14:51)
[2018-01-28] MEDS ORDERED: Ipratropium Brom3 ML INH (14:53)
[2018-01-28 20:00] VITALS: BP 135/73
[2018-01-29] VITALS: BP 106/81
[2018-01-29 07:07] LABS: BASO % 0.6 % (0.0-1.0); EOS # 0.1 10*3/uL (0.0-0.4); EOS % 4.2 % (1.0-4.0); HEMATOCRIT 23.4 % (42.0-52.0); HEMOGLOBIN 7.7 g/dl (14.0-18.0); LYMPH # 1.2 10*3/uL (1.3-4.4); MEAN CELL VOLUME 104.9 fl (80.0-94.0); MEAN CORPUSCULAR HGB 34.5 pg (27.0-31.0); MEAN CORPUSCULAR HGB CONC 32.9 g/dl (33.0-37.0); MEAN PLATELET VOLUME 10.7 fl (9.6-12.3); MONO # 0.3 10*3/uL (0.1-1.0); MONO % 7.5 % (3.0-9.0); NEUT # 1.7 10*3/uL (2.3-7.9); NEUT % 50.4 % (47.0-73.0); PLATELET COUNT AUTOMATED 52 10*3/uL (130-400); RED BLOOD COUNT 2.23 10*6/uL (4.50-5.90); RED CELL DISTRI WIDTH 18.9 % (0-14.5); WHITE BLOOD COUNT 3.3 10*3/uL (4.8-10.8)
[2018-01-29 07:26] LABS: CHLORIDE 102 mmol/L (98-107); CREATININE 1.35 mg/dL (0.70-1.30); SGOT/AST 72 IU/L (3-35); SGPT/ALT 35 U/L (12-78); SODIUM 142 mmol/L (136-145)
[2018-01-29 07:29] LABS: INTERNATIONAL NORM RATIO 1.5 (2.0-3.5)
[2018-01-29 07:33] LABS: ALBUMIN 2.5 gm/dl (3.1-4.5); ALKALINE PHOSPHATASE 122 U/L (45-117); BUN 20 mg/dl (7-24); PHOSPHOROUS 2.3 mg/dL (2.5-4.9); TOTAL PROTEIN 5.4 gm/dL (6.4-8.2)
[2018-01-29 08:00] VITALS: BP 140/80
[2018-01-29 12:00] VITALS: BP 147/77
[2018-01-29 16:00] VITALS: BP 121/60
[2018-01-29 20:00] VITALS: BP 130/51
[2018-01-30] VITALS: BP 128/57
[2018-01-30 07:39] LABS: BASO % 0.4 % (0.0-1.0); EOS # 0.2 10*3/uL (0.0-0.4); EOS % 4.7 % (1.0-4.0); HEMATOCRIT 26.5 % (42.0-52.0); HEMOGLOBIN 8.7 g/dl (14.0-18.0); LYMPH # 1.7 10*3/uL (1.3-4.4); LYMPH % 36.6 % (27.0-41.0); MEAN CELL VOLUME 106.4 fl (80.0-94.0); MEAN CORPUSCULAR HGB 34.9 pg (27.0-31.0); MEAN CORPUSCULAR HGB CONC 32.8 g/dl (33.0-37.0); MEAN PLATELET VOLUME 9.9 fl (9.6-12.3); MONO # 0.3 10*3/uL (0.1-1.0); MONO % 6.6 % (3.0-9.0); NEUT # 2.4 10*3/uL (2.3-7.9); NEUT % 51.3 % (47.0-73.0); PLATELET COUNT AUTOMATED 56 10*3/uL (130-400); RED BLOOD COUNT 2.49 10*6/uL (4.50-5.90); RED CELL DISTRI WIDTH 18.7 % (0-14.5); WHITE BLOOD COUNT 4.7 10*3/uL (4.8-10.8)
[2018-01-30 07:59] LABS: CREATININE 1.47 mg/dL (0.70-1.30); POTASSIUM 3.1 mmol/L (3.5-5.1)
[2018-01-30 08:00] VITALS: BP 124/60
[2018-01-30 12:00] VITALS: BP 104/46
[2018-01-30 16:00] VITALS: BP 106/59
[2018-01-30 20:00] VITALS: BP 90/50
[2018-01-31] VITALS: BP 134/73
[2018-01-31 06:31] LABS: BASO % 0.5 % (0.0-1.0); EOS # 0.2 10*3/uL (0.0-0.4); EOS % 3.6 % (1.0-4.0); HEMATOCRIT 25.3 % (42.0-52.0); HEMOGLOBIN 8.4 g/dl (14.0-18.0); LYMPH # 1.1 10*3/uL (1.3-4.4); LYMPH % 24.6 % (27.0-41.0); MEAN CELL VOLUME 107.7 fl (80.0-94.0); MEAN CORPUSCULAR HGB 35.7 pg (27.0-31.0); MEAN CORPUSCULAR HGB CONC 33.2 g/dl (33.0-37.0); MEAN PLATELET VOLUME 11.1 fl (9.6-12.3); MONO # 0.3 10*3/uL (0.1-1.0); MONO % 7.3 % (3.0-9.0); NEUT # 2.8 10*3/uL (2.3-7.9); NEUT % 63.8 % (47.0-73.0); PLATELET COUNT AUTOMATED 53 10*3/uL (130-400); RED BLOOD COUNT 2.35 10*6/uL (4.50-5.90); RED CELL DISTRI WIDTH 19.1 % (0-14.5); WHITE BLOOD COUNT 4.4 10*3/uL (4.8-10.8)
[2018-01-31 06:58] LABS: CREATININE 1.5 mg/dL (0.70-1.30); POTASSIUM 3.4 mmol/L (3.5-5.1)
[2018-01-31 08:00] VITALS: BP 112/67
[2018-01-31 12:00] VITALS: BP 104/48
[2018-01-31 16:00] VITALS: BP 101/52
[2018-01-31 20:00] VITALS: BP 131/55
[2018-02-01] VITALS: BP 139/70
[2018-02-01 06:06] LABS: HEMOGLOBIN 8.8 g/dl (14.0-18.0); MEAN CELL VOLUME 108.9 fl (80.0-94.0); MEAN CORPUSCULAR HGB 35.5 pg (27.0-31.0); MEAN CORPUSCULAR HGB CONC 32.6 g/dl (33.0-37.0); MEAN PLATELET VOLUME 10.9 fl (9.6-12.3); PLATELET COUNT AUTOMATED 52 10*3/uL (130-400); RED BLOOD COUNT 2.48 10*6/uL (4.50-5.90); RED CELL DISTRI WIDTH 19.2 % (0-14.5); WHITE BLOOD COUNT 6.2 10*3/uL (4.8-10.8)
[2018-02-01 06:16] LABS: ALBUMIN 2.5 gm/dl (3.1-4.5); CREATININE 1.54 mg/dL (0.70-1.30); TOTAL PROTEIN 5.8 gm/dL (6.4-8.2)
[2018-02-01 06:21] LABS: POTASSIUM 4.5 mmol/L (3.5-5.1)
[2018-02-01 06:48] LABS: PLATELET SUFFICIENCY LOW (NORMAL); TOTAL CELLS COUNTED 100 #CELLS
[2018-02-01 08:00] VITALS: BP 134/67
[2018-02-01 12:00] VITALS: BP 101/53
[2018-02-01 16:00] VITALS: BP 100/59
[2018-02-01 20:00] VITALS: BP 125/57
[2018-02-02] VITALS: BP 123/70
[2018-02-02 06:26] LABS: HEMOGLOBIN 9.1 g/dl (14.0-18.0); MEAN CELL VOLUME 110.2 fl (80.0-94.0); MEAN CORPUSCULAR HGB 35.8 pg (27.0-31.0); MEAN CORPUSCULAR HGB CONC 32.5 g/dl (33.0-37.0); PLATELET COUNT AUTOMATED 50 10*3/uL (130-400); RED BLOOD COUNT 2.54 10*6/uL (4.50-5.90); RED CELL DISTRI WIDTH 19.4 % (0-14.5); WHITE BLOOD COUNT 6.3 10*3/uL (4.8-10.8)
[2018-02-02 06:59] LABS: CREATININE 1.4 mg/dL (0.70-1.30); POTASSIUM 4.5 mmol/L (3.5-5.1)
[2018-02-02 07:10] LABS: TOTAL CELLS COUNTED 100 #CELLS
[2018-02-02 07:11] LABS: PLATELET SUFFICIENCY LOW (NORMAL)
[2018-02-02 08:00] VITALS: BP 117/77
[2018-02-02 12:00] VITALS: BP 100/80
[2018-02-02] MEDS ORDERED: KLOR-CON M2020 ME1 PO (12:39)
[2018-02-02 16:00] VITALS: BP 115/52
== END 2018-02-02 16:39 | disposition other institution (70) | DRG 177 ==
LOC: ED 11:32 → 5E 13:28 → EDHOLD 13:28 → 5E 13:52
PROVIDERS: Emergency Medicine; Family Medicine; Internal Medicine; Student in an Organized Health Care Education/Training Program
DX: A31.0 Pulmonary mycobacterial infection (principal); R65.11 Systemic inflammatory response syndrome (SIRS) of non-infectious origin with acute organ dysfunction; E43 Unspecified severe protein-calorie malnutrition; G93.41 Metabolic encephalopathy; E87.2 Acidosis; D61.818 Other pancytopenia; C34.90 Malignant neoplasm of unspecified part of unspecified bronchus or lung; I11.0 Hypertensive heart disease with heart failure; I50.9 Heart failure, unspecified; G30.1 Alzheimer's disease with late onset; F02.80 Dementia in other diseases classified elsewhere, unspecified severity, without behavioral disturbance, psychotic disturbance, mood disturbance, and anxiety; K74.60 Unspecified cirrhosis of liver; J98.4 Other disorders of lung; Z66 Do not resuscitate; Z51.5 Encounter for palliative care; E80.6 Other disorders of bilirubin metabolism; E55.9 Vitamin D deficiency, unspecified; E87.6 Hypokalemia; R29.6 Repeated falls; N40.0 Benign prostatic hyperplasia without lower urinary tract symptoms; M50.30 Other cervical disc degeneration, unspecified cervical region; K57.30 Diverticulosis of large intestine without perforation or abscess without bleeding; E78.5 Hyperlipidemia, unspecified; F41.1 Generalized anxiety disorder; E66.9 Obesity, unspecified; R62.7 Adult failure to thrive; Z90.49 Acquired absence of other specified parts of digestive tract; Z87.01 Personal history of pneumonia (recurrent); Z79.899 Other long term (current) drug therapy; Z79.84 Long term (current) use of oral hypoglycemic drugs; Z88.8 Allergy status to other drugs, medicaments and biological substances; Z87.891 Personal history of nicotine dependence; Z82.49 Family history of ischemic heart disease and other diseases of the circulatory system; Z79.1 Long term (current) use of non-steroidal anti-inflammatories (NSAID); Z68.28 Body mass index [BMI] 28.0-28.9, adult